=== PATIENT | male | born 1970 | race Caucasian/White ===

== ENCOUNTER → 2017-10-20 | Outpatient (CLI) | payer OTHER ==
[2017-10-20 17:37] LABS: HCT 44.2 % (39.0-53.0); HGB 14.9 gm/dL (13.0-17.5); MCH 30.6 pg (25.0-35.0); MCHC 33.8 g/dL (31.0-37.0); MCV 90.6 fL (80.0-100.0); Platelet Count 220 k/uL (150-450); RBC 4.88 m/uL (4.30-5.90); RDW 13.3 % (11.5-15.5); WBC 6.3 k/uL (3.8-10.6)
[2017-10-20 17:42] LABS: Anion Gap 8 mmol/L; Blood Urea Nitrogen 18 mg/dL (9-20); Carbon Dioxide 23 mmol/L (22-30); Chloride 110 mmol/L (98-107); Potassium 4.3 mmol/L (3.5-5.1); Sodium 141 mmol/L (137-145)
[2017-10-20 17:44] LABS: Appearance,Urine Clear (Clear); Bilirubin,Urine Negative (Negative); Blood,Urine Negative (Negative); Calcium Oxalate Crystals,Urine Moderate /hpf; Color,Urine Yellow; Glucose,Urine (UA) Negative (Negative); Ketones,Urine Negative (Negative); Leukocyte Esterase,Urine Small (Negative); Mucus,Urine Rare /hpf; Nitrite,Urine Negative (Negative); Protein,Urine Negative (Negative); RBC,Urine 2 /hpf (0-5); Specific Gravity,Urine 1.017 (1.001-1.035); Squamous Epithelial Cell,Urine <1 /hpf (0-4); WBC,Urine 15 /hpf (0-5)
== END | disposition home or self-care (01) ==
LOC: LABWHC1 16:30
PROVIDERS: ATTEND Urology
DX: N20.0 Calculus of kidney (principal)
CPT/HCPCS: 36415; 80051; 81001; 82565; 84520; 85027

== ENCOUNTER → 2017-10-27 | Day surgery (SDC) | payer OTHER ==
[2017-10-23 17:22] VITALS: BMI 30.1
--- NOTE | 2017-10-26 19:36 | P.GSHP ---
History of Present Illness H&P Date: 10/26/17 47 yo male with a left renal calculous who comes for ewsl left - Review of Systems ROS unobtainable: Reports: due to endotracheal tube, due to mental status Past Medical History Additional Past Medical History / Comment(s): KIDNEY STONES. History of Any Multi-Drug Resistant Organisms: None Reported Additional Past Surgical History / Comment(s): ECSL X2. Past Anesthesia/Blood Transfusion Reactions: No Reported Reaction Smoking Status: Never smoker - Past Family History Mother Family Medical History: No Reported History Medications and Allergies Home Medications Medication Instructions Recorded Confirmed Type No Known Home Medications 10/23/17 10/23/17 History Allergies Allergy/AdvReac Type Severity Reaction Status Date / Time No Known Allergies Allergy Verified 10/23/17 17:07 Surgical - Exam - General well developed, well nourished - Eyes PERRL - ENT no hearing loss - Neck no masses, trachea midline - Respiratory normal expansion, normal respiratory effort - Cardiovascular Rhythm: regular - Abdomen Abdomen: soft, non tender - Integumentary no rash, no growths - Neurologic normal coordination - Musculoskeletal normal gait, normal posture - Psychiatric oriented to time, oriented to person, oriented to place, speech is normal, memory intact Assessment and Plan Assessment: Impression: Left renal stone Plan: ESWl left
[~2017-10-27] MED LIST: DEXAMETHASONE SOD PHOSPHATE 10 MG/ML 1 ML VIAL IV ONE; KETAMINE 10 MG/ML 20 ML VIAL ONE; LACTATED RINGERS 1,000 ML IV ONE; LACTATED RINGERS 1,000 ML IV SCH; LIDOCAINE 1% 20 ML VIAL (10MG/ML) FOR IV START INTRADERMA ONE; MIDAZOLAM 2 MG/2 ML VIAL ONE; ONDANSETRON 4 MG/2 ML VIAL IVP ONE; PROPOFOL 10 MG/ML 20 ML VIAL IV ONE; Pre Op ABX Message 1 EACH MISC MISCELLANE ONE; fentaNYL (PF) 50 MCG/ML 2 ML AMP ONE
--- NOTE | 2017-10-27 06:16 | XR ---
EXAMINATION TYPE: XR KUB DATE OF EXAM: 10/27/2017 COMPARISON: NONE HISTORY: Preop. Renal stone. TECHNIQUE: Single view FINDINGS: There is 1 cm calculus over the lower pole left kidney. There are 2 other smaller 4 mm calc sol over the left kidney. There is no sign of intestinal obstruction or pneumoperitoneum. Fecal patte rn is normal. There are phleboliths in the pelvis. IMPRESSION: Left renal calculi. Nonacute abdomen.
--- NOTE | 2017-10-27 08:17 | P.OP ---
Date of Procedure: 10/27/17 Preoperative Diagnosis: Left renal stones Postoperative Diagnosis: Same Procedure(s) Performed: Extracorporeal shockwave lithotripsy 2500 shocks at energy level IV Anesthesia: SD SIMON Surgeon: Nash Miller Pathology: none sent Condition: stable Disposition: PACU Indications for Procedure: The patient is 47 years old he has 3 renal stones causing pain he comes for shockwave lithotripsy. Description of Procedure: Patient brought to the operating suite. He's placed on the lithotripsy table in supine position. The stones seen in 2 views of fluoroscopy. He is given IV sedation. After 300 shocks is upper pole stone begins to break cannot tolerate this sedative anesthetic. He is given an LMA mask anesthetic. Total of 2500 shocks to all the stones are administered. The stone fractures nicely. The patient's awake and returned recovery in good condition. Patellar procedure well be discharged home upon recovery.
[2017-10-27 08:41] VITALS: TEMP 96.8
[2017-10-27] MEDS: HYDROmorphone 0.5 MG/0.5 ML SYRINGE IVP PRN ×2 (08:52→08:57)
[2017-10-27 09:02] VITALS: RESP 18
[2017-10-27 09:49] VITALS: BP 156/90; PULSE 65
== END ==
LOC: ORWHC2ENDO 05:55
PROVIDERS: ATTEND Urology
DX: N20.0 Calculus of kidney (principal)
CPT/HCPCS: 74018; 50590; J2250; J1100; J2405; J3010; J2704; J1170

== ENCOUNTER 2019-12-03 09:22 | Emergency (ER) | payer OTHER ==
[2019-12-03 09:29] VITALS: RESP 18; TEMP 98.1
[2019-12-03] MEDS ORDERED: SODIUM CHLORIDE 0.9% 1,000 ML IV STA (09:39)
[2019-12-03] MEDS ORDERED: HYDROmorphone 0.5 MG/0.5 ML SYRINGE IVP STA (09:39)
[2019-12-03] MEDS ORDERED: SODIUM CHLORIDE 0.9% 500 ML 500 ML IV STA (09:39)
[2019-12-03] MEDS ORDERED: KETOROLAC 15 MG/ML 1 ML VIAL IVP STA (09:39)
[2019-12-03] MEDS ORDERED: ONDANSETRON 4 MG/2 ML VIAL IVP STA (09:39)
--- NOTE | 2019-12-03 09:43 | ED ---
General Adult HPI - General Chief complaint: Urogenital Stated complaint: Kidney stone Time Seen by Provider: 12/03/19 09:30 Source: patient, RN notes reviewed Mode of arrival: ambulatory Limitations: no limitations - History of Present Illness Initial comments: 49-year-old male presents emergency Department with chief complaint of right leg today. Patient has a history kidney stones. Patient's had surgical procedures in the past. Patient does see Dr. Bowden urologist on a regular basis. Patient had slight nausea at the makes his pain feel better or worse. Patient's current pain 5 out of 10. Patient states pain is on his right side. Patient has no dysuria no hematuria. Patient denies any chest pain or shortness breath patient offers no complaints. - Related Data Previous Rx's Medication Instructions Recorded Acetaminophen-Codeine 300-30mg 1 tab PO Q6H PRN 3 Days #12 tablet 10/27/17 [Tylenol w/codeine #3] Hydrocodone/Acetaminophen [[place] 1 tab PO Q6HR PRN #12 tab 12/03/19 5-325] Ketorolac [Toradol] 10 mg PO Q8HR #15 tab 12/03/19 Ondansetron Odt [Zofran Odt] 4 mg PO Q8HR PRN #10 tab 12/03/19 Sulfamethox-Tmp 800-160Mg [Bactrim 1 each PO Q12HR #14 tab 12/03/19 Ds] Tamsulosin [Flomax] 0.4 mg PO DAILY #7 cap 12/03/19 Allergies Allergy/AdvReac Type Severity Reaction Status Date / Time No Known Allergies Allergy Verified 12/03/19 09:29 Review of Systems ROS Statement: Those systems with pertinent positive or pertinent negative responses have been documented in the HPI. ROS Other: All systems not noted in ROS Statement are negative. Past Medical History Additional Past Medical History / Comment(s): Kidney stones History of Any Multi-Drug Resistant Organisms: None Reported Additional Past Surgical History / Comment(s): Lithrotripsy Past Psychological History: No Psychological Hx Reported Smoking Status: Never smoker Past Alcohol Use History: None Reported Past Drug Use History: None Reported General Exam Limitations: no limitations General appearance: alert, in no apparent distress Head exam: Present: atraumatic, normocephalic, normal inspection Eye exam: Present: normal appearance, PERRL, EOMI. Absent: scleral icterus, conjunctival injection, periorbital swelling ENT exam: Present: normal exam, normal oropharynx, mucous membranes moist Neck exam: Present: normal inspection, full ROM. Absent: tenderness, meningismus, lymphadenopathy Respiratory exam: Present: normal lung sounds bilaterally. Absent: respiratory distress, wheezes, rales, rhonchi, stridor Cardiovascular Exam: Present: regular rate, normal rhythm, normal heart sounds. Absent: systolic murmur, diastolic murmur, rubs, gallop, clicks GI/Abdominal exam: Present: soft, normal bowel sounds. Absent: distended, tenderness, guarding, rebound, rigid Back exam: Absent: CVA tenderness (R), CVA tenderness (L) Neurological exam: Present: alert, oriented X3, CN II-XII intact Skin exam: Present: warm, dry, intact, normal color. Absent: rash Course Vital Signs 12/03/19 12/03/19 09:26 10:51 Temperature 98.1 F Pulse Rate 80 85 Respiratory 18 18 Rate Blood Pressure 143/91 138/98 O2 Sat by Pulse 98 95 Oximetry Medical Decision Making - Medical Decision Making 49-year-old male presented for flank pain. Urinalysis reveals hematuria and mild amount of bacteria patient was given antibiotics patient has no signs of septic stone there is concerned that he may be passing a kidney stone at this time. Patient will be discharged stable condition with follow-up with his urologist return parameters were discussed. - Lab Data Result diagrams: 12/03/19 09:46 12/03/19 09:46 Lab Results 12/03/19 12/03/19 12/03/19 Range/Units 09:46 09:46 09:46 WBC 10.2 (3.8-10.6) k/uL RBC 5.18 (4.30-5.90) m/uL Hgb 16.4 (13.0-17.5) gm/dL Hct 47.0 (39.0-53.0) % MCV 90.7 (80.0-100.0) fL MCH 31.6 (25.0-35.0) pg MCHC 34.9 (31.0-37.0) g/dL RDW 12.9 (11.5-15.5) % Plt Count 190 (150-450) k/uL Neutrophils % 80 % Lymphocytes % 12 % Monocytes % 5 % Eosinophils % 2 % Basophils % 1 % Neutrophils # 8.1 H (1.3-7.7) k/uL Lymphocytes # 1.3 (1.0-4.8) k/uL Monocytes # 0.5 (0-1.0) k/uL Eosinophils # 0.2 (0-0.7) k/uL Basophils # 0.1 (0-0.2) k/uL Sodium 136 L (137-145) mmol/L Potassium 4.0 (3.5-5.1) mmol/L Chloride 104 (98-107) mmol/L Carbon Dioxide 25 (22-30) mmol/L Anion Gap 7 mmol/L BUN 16 (9-20) mg/dL Creatinine 1.34 H (0.66-1.25) mg/dL Est GFR (CKD-EPI)AfAm 73 (>60 ml/min/1.73 sqM) Est GFR (CKD-EPI)NonAf 63 (>60 ml/min/1.73 sqM) Glucose 114 H (74-99) mg/dL Calcium 10.9 H (8.4-10.2) mg/dL Total Bilirubin 2.2 H (0.2-1.3) mg/dL AST 53 (17-59) U/L ALT 68 H (4-49) U/L Alkaline Phosphatase 61 (38-126) U/L Total Protein 7.4 (6.3-8.2) g/dL Albumin 4.8 (3.5-5.0) g/dL Amylase 71 (30-110) U/L Lipase 124 (23-300) U/L Urine Color Yellow Urine Appearance Clear (Clear) Urine pH 5.5 (5.0-8.0) Ur Specific [place] 1.017 (1.001-1.035) Urine Protein Trace H (Negative) Urine Glucose (UA) Negative (Negative) Urine Ketones Trace H (Negative) Urine Blood Moderate H (Negative) Urine Nitrite Negative (Negative) Urine Bilirubin Negative (Negative) Urine Urobilinogen <2.0 (<2.0) mg/dL Ur Leukocyte Esterase Moderate H (Negative) Urine RBC 74 H (0-5) /hpf Urine WBC 17 H (0-5) /hpf Urine Bacteria Occasional H (None) /hpf Urine Mucus Rare H (None) /hpf Disposition Clinical Impression: Kidney stone Disposition: HOME SELF-CARE Condition: Stable Instructions (If sedation given, give patient instructions): Kidney Stones (ED) Additional Instructions: Please return to the Emergency Department if symptoms worsen or any other concerns. Prescriptions: Sulfamethox-Tmp 800-160Mg [Bactrim Ds] 1 each PO Q12HR #14 tab Tamsulosin [Flomax] 0.4 mg PO DAILY #7 cap Hydrocodone/Acetaminophen [[place] 5-325] 1 tab PO Q6HR PRN #12 tab PRN Reason: Pain Ketorolac [Toradol] 10 mg PO Q8HR #15 tab Ondansetron Odt [Zofran Odt] 4 mg PO Q8HR PRN #10 tab PRN Reason: Nausea Is patient prescribed a controlled substance at d/c from ED?: Yes When asked, does pt state using other controlled substances?: No If prescribed controlled substance>3 days was MAPS reviewed?: Prescribed <3 Days If opioid is for acute pain is fill amount 7 days or less?: Yes If Rx opioid, was Start Talking consent form obtained?: Yes Referrals: None,Stated [Primary Care Provider] - 1-2 days Nash Miller MD [STAFF PHYSICIAN] - 1-2 days
[2019-12-03 10:17] LABS: Appearance,Urine Clear (Clear); Bacteria,Urine Occasional /hpf; Bilirubin,Urine Negative (Negative); Blood,Urine Moderate (Negative); Color,Urine Yellow; Glucose,Urine (UA) Negative (Negative); Ketones,Urine Trace (Negative); Leukocyte Esterase,Urine Moderate (Negative); Mucus,Urine Rare /hpf; Nitrite,Urine Negative (Negative); PH, Urine 5.5 (5.0-8.0); Protein,Urine Trace (Negative); RBC,Urine 74 /hpf (0-5); Specific Gravity,Urine 1.017 (1.001-1.035); Urobilinogen,Urine <2.0 mg/dL (<2.0); WBC,Urine 17 /hpf (0-5)
--- NOTE | 2019-12-03 10:17 | XR ---
EXAMINATION TYPE: XR KUB DATE OF EXAM: 12/03/2019 10:10 AM CLINICAL HISTORY: Abdominal pain TECHNIQUE: Upright images of the abdomen and pelvis were obtained COMPARISON: 10/27/2017 KUB. FINDINGS: There is a paucity of bowel gas. The visualized bowel gas pattern is nonspecific. No pneumo peritoneum. There are calcifications overlying the bilateral kidneys measuring up to 9 and 7 mm on th e right and 9 mm on the left. Calcifications overlying the pelvis. The lung bases are clear. The osse ous structures are intact. IMPRESSION: 1. Paucity of bowel gas, with nonspecific bowel gas pattern. 2. Calcifications overlying the bilateral kidneys likely nephrolithiasis. 3. Calcifications over the pelvis could represent calculi versus phleboliths.
[2019-12-03 10:28] LABS: Basophils # (A) 0.1 k/uL (0-0.2); Basophils % (A) 1 %; Eosinophils # (A) 0.2 k/uL (0-0.7); Eosinophils % (A) 2 %; HGB 16.4 gm/dL (13.0-17.5); Lymphocytes # (A) 1.3 k/uL (1.0-4.8); Lymphocytes % (A) 12 %; MCH 31.6 pg (25.0-35.0); MCHC 34.9 g/dL (31.0-37.0); MCV 90.7 fL (80.0-100.0); Monocytes # (A) 0.5 k/uL (0-1.0); Monocytes % (A) 5 %; Neutrophils # (A) 8.1 k/uL (1.3-7.7); Neutrophils % (A) 80 %; Platelet Count 190 k/uL (150-450); RBC 5.18 m/uL (4.30-5.90); RDW 12.9 % (11.5-15.5); WBC 10.2 k/uL (3.8-10.6)
[2019-12-03 10:52] VITALS: BP 138/98; PULSE 85
[2019-12-03 11:04] LABS: Albumin 4.8 g/dL (3.5-5.0); Calcium 10.9 mg/dL (8.4-10.2); Total Bilirubin 2.2 mg/dL (0.2-1.3); Total Protein 7.4 g/dL (6.3-8.2)
[2019-12-03] MEDS ORDERED: cefTRIAXone IN SWFI 1,000 MG/10 ML SYRINGE IVP STA (11:10)
== END 2019-12-03 11:36 | disposition home or self-care (01) ==
LOC: EC 09:22
DX: N20.0 Calculus of kidney (principal)
CPT/HCPCS: 36415; 80053; 82150; 83690; 85025; 81001; 87086; 74018; 99284; 96374; 96375 ×3; 96361 ×2; J2405; J0696; J1885; J1170

== ENCOUNTER 2020-04-07 00:09 | Emergency (ER) | payer OTHER ==
[2020-04-07 00:22] VITALS: TEMP 97.9
[2020-04-07] MEDS ORDERED: SODIUM CHLORIDE 0.9% 1,000 ML IV STA (00:31)
[2020-04-07] MEDS ORDERED: ONDANSETRON 4 MG/2 ML VIAL IVP STA (00:31)
[2020-04-07] MEDS ORDERED: KETOROLAC 15 MG/ML 1 ML VIAL IVP STA (00:31)
[2020-04-07] MEDS ORDERED: HYDROmorphone 0.5 MG/0.5 ML SYRINGE IVP STA (00:31)
--- NOTE | 2020-04-07 01:03 | XR ---
EXAM: XR Abdomen, 2 Views CLINICAL HISTORY: ITS.REASON XR Reason: abdominal pain TECHNIQUE: Frontal view of the abdomen/pelvis with upright view of the abdomen. COMPARISON: 12/03/2019 FINDINGS: Intraperitoneal space: No free air. Gastrointestinal tract: Unremarkable. No dilation. Organs: Continued calcifications overlying the kidneys suggesting stones, largest measures 1 cm on the left. Bones/joints: No acute osseous abnormality. Vasculature: Calcified pelvic phleboliths. IMPRESSION: 1. Nonobstructive bowel gas pattern. 2. Continued probable bilateral nephrolithiasis.
[2020-04-07 01:05] LABS: Basophils # (A) 0.1 k/uL (0-0.2); Basophils % (A) 2 %; Eosinophils # (A) 0.3 k/uL (0-0.7); Eosinophils % (A) 5 %; HCT 44.3 % (39.0-53.0); HGB 15.5 gm/dL (13.0-17.5); Lymphocytes # (A) 2.4 k/uL (1.0-4.8); Lymphocytes % (A) 42 %; MCH 31.3 pg (25.0-35.0); MCV 89.5 fL (80.0-100.0); Mean Platelet Volume 8.7; Monocytes # (A) 0.3 k/uL (0-1.0); Monocytes % (A) 5 %; Neutrophils # (A) 2.5 k/uL (1.3-7.7); Neutrophils % (A) 43 %; Platelet Count 202 k/uL (150-450); RBC 4.95 m/uL (4.30-5.90); RDW 12.8 % (11.5-15.5); WBC 5.7 k/uL (3.8-10.6)
[2020-04-07 01:15] LABS: Albumin 4.6 g/dL (3.5-5.0); Calcium 11.3 mg/dL (8.4-10.2); Total Bilirubin 1.2 mg/dL (0.2-1.3); Total Protein 7.1 g/dL (6.3-8.2)
[2020-04-07] MEDS ORDERED: SODIUM CHLORIDE 0.9% 500 ML 500 ML IV ONE (01:34)
[2020-04-07] MEDS ORDERED: HYDROmorphone 1 MG/ML 1 ML SYRINGE IVP STA (01:48)
--- NOTE | 2020-04-07 01:50 | ED ---
Abdominal Pain HPI - General Chief Complaint: Abdominal Pain Stated Complaint: Kidney Stone Time Seen by Provider: 04/07/20 00:21 Source: patient, family Mode of arrival: ambulatory Limitations: no limitations - History of Present Illness Initial Comments: 49-year-old male patient presents to the emergency department today for evaluation of left flank pain, left lower quadrant pain. Patient states the pain started about an hour ago and has been worsening. States that he does have a history of kidney stones and this feels quite similar to his pain in the past. Denies any nausea or vomiting. Denies fever or chills. Denies any hematuria, dysuria, urinary urgency, urinary frequency. Patient has had lithotripsy in the past and has also passed stones without intervention. He did take Flomax prior to arrival. Denies any pain medication. Patient denies any recent rash, cough, shortness of breath, chest pain, diarrhea, constipation, numbness, tingling, dizziness, weakness, headache, visual changes, or any other complaints. - Related Data Previous Rx's Medication Instructions Recorded Acetaminophen-Codeine 300-30mg 1 tab PO Q6H PRN 3 Days #12 tablet 10/27/17 [Tylenol w/codeine #3] Hydrocodone/Acetaminophen [[place] 1 tab PO Q6HR PRN #12 tab 12/03/19 5-325] Ketorolac [Toradol] 10 mg PO Q8HR #15 tab 12/03/19 Ondansetron Odt [Zofran Odt] 4 mg PO Q8HR PRN #10 tab 12/03/19 Sulfamethox-Tmp 800-160Mg [Bactrim 1 each PO Q12HR #14 tab 12/03/19 Ds] Tamsulosin [Flomax] 0.4 mg PO DAILY #7 cap 12/03/19 HYDROcodone/APAP 5-325MG [[place] 1 tab PO Q6HR PRN 3 Days #12 tab 04/07/20 5-325] Ondansetron [Zofran ODT] 4 mg PO Q8HR PRN #10 tab 04/07/20 Tamsulosin HCl [Flomax] 0.4 mg PO DAILY #7 cap 04/07/20 Allergies Allergy/AdvReac Type Severity Reaction Status Date / Time No Known Allergies Allergy Verified 04/07/20 00:15 Review of Systems ROS Statement: Those systems with pertinent positive or pertinent negative responses have been documented in the HPI. ROS Other: All systems not noted in ROS Statement are negative. Past Medical History Additional Past Medical History / Comment(s): Kidney stones History of Any Multi-Drug Resistant Organisms: None Reported Past Surgical History: Hernia Repair Additional Past Surgical History / Comment(s): Lithrotripsy Past Psychological History: No Psychological Hx Reported Smoking Status: Never smoker Past Alcohol Use History: None Reported Past Drug Use History: None Reported General Exam Limitations: no limitations General appearance: alert, in no apparent distress, other (This is a well- developed, well-nourished adult male patient in no acute distress. Vital signs upon presentation are temperature 97.9F, pulse 93, respirations 22, blood pressure 154/92, pulse ox 97% on room air.) Eye exam: Present: normal appearance, PERRL, EOMI. Absent: scleral icterus, conjunctival injection, periorbital swelling ENT exam: Present: normal exam, normal oropharynx, mucous membranes moist Respiratory exam: Present: normal lung sounds bilaterally. Absent: respiratory distress, wheezes, rales, rhonchi, stridor Cardiovascular Exam: Present: regular rate, normal rhythm, normal heart sounds. Absent: systolic murmur, diastolic murmur, rubs, gallop, clicks GI/Abdominal exam: Present: soft, tenderness (Left lateral abdomen, middle), normal bowel sounds. Absent: distended, guarding, rebound, rigid Back exam: Present: normal inspection, CVA tenderness (L). Absent: CVA tenderness (R) Neurological exam: Present: alert, oriented X3, CN II-XII intact Psychiatric exam: Present: normal affect, normal mood Skin exam: Present: warm, dry, intact, normal color. Absent: rash Course Vital Signs 04/07/20 00:11 Temperature 97.9 F Pulse Rate 93 Respiratory 22 Rate Blood Pressure 154/92 O2 Sat by Pulse 97 Oximetry Medical Decision Making - Medical Decision Making 49-year-old male patient presents to the emergency department today for evaluation of left flank pain and left lower quadrant abdominal pain. Physical examination did reveal left CVA tenderness, mild left mid lateral abdominal tenderness. No suprapubic tenderness. He is afebrile normal vital signs. KUB was obtained and did show nephrolithiasis bilaterally. Labs reviewed and did reveal normal white blood cell,. Mildly elevated creatinine at 1.41. Patient also had elevated lipase at 1100. Patient was reevaluated, he denies any upper abdominal pain or mid upper back pain. Denies nausea or vomiting. States he's been eating and drinking without difficulty. Does admit to drinking every weekend over the summer, states he hasn't had alcohol for the last couple of weeks. He had no midepigastric tenderness. Urinalysis did show evidence for red and white blood cells consistent with kidney stone. I did discuss findings results with him. We did discuss pancreatitis and diet changes related to this. He will be discharged to follow-up with both gastroenterology and urology. He is given pain and nausea medication for home. He is instructed to follow clear liquid diet for the next one to days. Instructed to increase fluids. Return parameters were discussed in great detail. He verbalizes understanding and agrees with this plan. - Lab Data Result diagrams: 04/07/20 00:52 04/07/20 00:52 Lab Results 04/07/20 04/07/20 04/07/20 Range/Units 00:52 00:52 00:52 WBC 5.7 (3.8-10.6) k/uL RBC 4.95 (4.30-5.90) m/uL Hgb 15.5 (13.0-17.5) gm/dL Hct 44.3 (39.0-53.0) % MCV 89.5 (80.0-100.0) fL MCH 31.3 (25.0-35.0) pg MCHC 35.0 (31.0-37.0) g/dL RDW 12.8 (11.5-15.5) % Plt Count 202 (150-450) k/uL MPV 8.7 Neutrophils % 43 % Lymphocytes % 42 % Monocytes % 5 % Eosinophils % 5 % Basophils % 2 % Neutrophils # 2.5 (1.3-7.7) k/uL Lymphocytes # 2.4 (1.0-4.8) k/uL Monocytes # 0.3 (0-1.0) k/uL Eosinophils # 0.3 (0-0.7) k/uL Basophils # 0.1 (0-0.2) k/uL Sodium 139 (137-145) mmol/L Potassium 4.0 (3.5-5.1) mmol/L Chloride 105 (98-107) mmol/L Carbon Dioxide 23 (22-30) mmol/L Anion Gap 11 mmol/L BUN 20 (9-20) mg/dL Creatinine 1.41 H (0.66-1.25) mg/dL Est GFR (CKD-EPI)AfAm 68 (>60 ml/min/1.73 sqM) Est GFR (CKD-EPI)NonAf 59 (>60 ml/min/1.73 sqM) Glucose 122 H (74-99) mg/dL Plasma Lactic Acid [place] (0.7-2.0) mmol/L Calcium 11.3 H (8.4-10.2) mg/dL Total Bilirubin 1.2 (0.2-1.3) mg/dL AST 33 (17-59) U/L ALT 48 (4-49) U/L Alkaline Phosphatase 51 (38-126) U/L Total Protein 7.1 (6.3-8.2) g/dL Albumin 4.6 (3.5-5.0) g/dL Lipase 1133 H (23-300) U/L Urine Color Yellow Urine Appearance Clear (Clear) Urine pH 5.5 (5.0-8.0) Ur Specific [place] 1.020 (1.001-1.035) Urine Protein 1+ H (Negative) Urine Glucose (UA) Negative (Negative) Urine Ketones Negative (Negative) Urine Blood Moderate H (Negative) Urine Nitrite Negative (Negative) Urine Bilirubin Negative (Negative) Urine Urobilinogen <2.0 (<2.0) mg/dL Ur Leukocyte Esterase Small H (Negative) Urine RBC 33 H (0-5) /hpf Urine WBC 38 H (0-5) /hpf Calcium Oxalate Crystal Few H (None) /hpf Urine Mucus Rare H (None) /hpf 04/07/20 Range/Units 00:52 WBC (3.8-10.6) k/uL RBC (4.30-5.90) m/uL Hgb (13.0-17.5) gm/dL Hct (39.0-53.0) % MCV (80.0-100.0) fL MCH (25.0-35.0) pg MCHC (31.0-37.0) g/dL RDW (11.5-15.5) % Plt Count (150-450) k/uL MPV Neutrophils % % Lymphocytes % % Monocytes % % Eosinophils % % Basophils % % Neutrophils # (1.3-7.7) k/uL Lymphocytes # (1.0-4.8) k/uL Monocytes # (0-1.0) k/uL Eosinophils # (0-0.7) k/uL Basophils # (0-0.2) k/uL Sodium (137-145) mmol/L Potassium (3.5-5.1) mmol/L Chloride (98-107) mmol/L Carbon Dioxide (22-30) mmol/L Anion Gap mmol/L BUN (9-20) mg/dL Creatinine (0.66-1.25) mg/dL Est GFR (CKD-EPI)AfAm (>60 ml/min/1.73 sqM) Est GFR (CKD-EPI)NonAf (>60 ml/min/1.73 sqM) Glucose (74-99) mg/dL Plasma Lactic Acid [place] 2.0 (0.7-2.0) mmol/L Calcium (8.4-10.2) mg/dL Total Bilirubin (0.2-1.3) mg/dL AST (17-59) U/L ALT (4-49) U/L Alkaline Phosphatase (38-126) U/L Total Protein (6.3-8.2) g/dL Albumin (3.5-5.0) g/dL Lipase (23-300) U/L Urine Color Urine Appearance (Clear) Urine pH (5.0-8.0) Ur Specific [place] (1.001-1.035) Urine Protein (Negative) Urine Glucose (UA) (Negative) Urine Ketones (Negative) Urine Blood (Negative) Urine Nitrite (Negative) Urine Bilirubin (Negative) Urine Urobilinogen (<2.0) mg/dL Ur Leukocyte Esterase (Negative) Urine RBC (0-5) /hpf Urine WBC (0-5) /hpf Calcium Oxalate Crystal (None) /hpf Urine Mucus (None) /hpf - Radiology Data Radiology results: report reviewed, image reviewed Two-view x-ray of the abdomen is obtained. Report was reviewed in its entirety. Impression by Dr. Malloy shows nonobstructive bowel gas pattern. Continue probable bilateral nephrolithiasis. Disposition Clinical Impression: Kidney stone on left side, Pancreatitis Disposition: HOME SELF-CARE Condition: Good Instructions (If sedation given, give patient instructions): Pancreatitis (ED), Kidney Stones (ED), Clear Liquid Diet (ED), How to Strain Your Urine (ED) Additional Instructions: Do clear liquid diet for the next 1-2 days. Increase fluids especially water. Take medications as directed for pain control. Follow-up with your urologist for further evaluation for kidney stone in 1-2 days. Follow-up with the glue mill operator for further evaluation of her pancreatitis. Consider obtaining a primary care physician. Return to the emergency department for any new, worsening, or concerning symptoms. Prescriptions: Tamsulosin HCl [Flomax] 0.4 mg PO DAILY #7 cap HYDROcodone/APAP 5-325MG [[place] 5-325] 1 tab PO Q6HR PRN 3 Days #12 tab PRN Reason: Pain Ondansetron [Zofran ODT] 4 mg PO Q8HR PRN #10 tab PRN Reason: Nausea Is patient prescribed a controlled substance at d/c from ED?: Yes When asked, does pt state using other controlled substances?: No If prescribed controlled substance>3 days was MAPS reviewed?: Prescribed <3 Days If opioid is for acute pain is fill amount 7 days or less?: Yes If Rx opioid, was Start Talking consent form obtained?: Yes Referrals: Nash Miller MD [STAFF PHYSICIAN] - 1-2 days Lupillo Rodriguez MD [STAFF PHYSICIAN] - 1-2 days Time of Disposition: 02:15
[2020-04-07 01:57] LABS: Appearance,Urine Clear (Clear); Bilirubin,Urine Negative (Negative); Blood,Urine Moderate (Negative); Calcium Oxalate Crystals,Urine Few /hpf; Color,Urine Yellow; Glucose,Urine (UA) Negative (Negative); Ketones,Urine Negative (Negative); Leukocyte Esterase,Urine Small (Negative); Mucus,Urine Rare /hpf; Nitrite,Urine Negative (Negative); PH, Urine 5.5 (5.0-8.0); Protein,Urine 1+ (Negative); RBC,Urine 33 /hpf (0-5); Urobilinogen,Urine <2.0 mg/dL (<2.0); WBC,Urine 38 /hpf (0-5)
[2020-04-07] MEDS ORDERED: ACET/COD 300 MG/30 MG STARTER PACK 6 TAB BTL PO STA (02:16)
[2020-04-07] MEDS ORDERED: ONDANSETRON 4 MG ODT STARTER PACK 2 TAB BTL PO STA (02:16)
[2020-04-07 03:07] VITALS: BP 134/93; PULSE 68; RESP 18
== END 2020-04-07 03:08 | disposition home or self-care (01) ==
LOC: EC 00:09
DX: N20.0 Calculus of kidney (principal); K85.90 Acute pancreatitis without necrosis or infection, unspecified
CPT/HCPCS: 99284; 96374; 96375 ×2; 96376; 96361; 36415; 80053; 83605; 83690; 85025; 81001; 87086; 74018; J2405; J1170 ×2; J1885; S0119

== ENCOUNTER → 2020-04-10 | Outpatient (CLI) | payer OTHER ==
--- NOTE | 2020-04-11 08:09 | XR ---
KUB HISTORY: Left flank pain, N 20.0 Frontal KUB and 2 images correlated to prior exam 04/07/2020 There are small multiple calcifications overlying the lower pole the left kidney similar to prior exa m. Some sand-like calcifications are also present in the mid to lower pole on the left, there is a ca lcification superimposed over the right kidney which also may be fragmented. Multiple calcifications are noted within the pelvis and scrotum similar to prior, difficult to exclude a distal ureteral calc ulus. IMPRESSION: Findings are similar to prior exam. Bilateral nephrolithiasis. Additional findings above.
== END | disposition home or self-care (01) ==
LOC: RADXRMAIN 15:14
PROVIDERS: ATTEND Urology
DX: N20.2 Calculus of kidney with calculus of ureter (principal)
CPT/HCPCS: 74018

== ENCOUNTER → 2020-04-12 | Outpatient (CLI) | payer OTHER ==
--- NOTE | 2020-04-12 11:55 | CT ---
EXAMINATION TYPE: CT abdomen pelvis wo con DATE OF EXAM: 04/12/2020 COMPARISON: None HISTORY: Pain Examination of the solid and hollow viscera is limited given the lack of contrast. FINDINGS: LUNG BASES: No evidence for nodule. No evidence for infiltrate. LIVER/GB: The gallbladder is unremarkable. No space-occupying hepatic lesion. PANCREAS: No pancreatic mass identified. No inflammatory process seen. SPLEEN: No evidence for splenomegaly. No intrasplenic lesions seen. ADRENALS: No adrenal nodules identified. No evidence for thickening. KIDNEYS: Approximately 4 nonobstructing calculi are noted right kidney the largest within the mid johnna e measures 9.2 cm. Approximately 6 nonobstructing calculi left kidney the largest noted within the lo wer pole measures approximately 1.3 cm. No obstructing calculus noted. No evidence for hydronephrosis . Renal cystic changes noted left kidney. BOWEL: Appendix has a normal appearance. No evidence of bowel obstruction. No inflammatory process. Lymph nodes: No evidence for adenopathy greater than 1 cm. Abdominal aorta: Atheromatous changes seen. No evidence for aneurysm. Genital organs: No significant abnormality. Other: No significant abnormality. IMPRESSION: 1. Nonobstructing nephrolithiasis.
== END | disposition home or self-care (01) ==
LOC: RADCTMAIN 11:11
PROVIDERS: ATTEND Urology
DX: N20.0 Calculus of kidney (principal)
CPT/HCPCS: 74176

== ENCOUNTER → 2020-05-15 | Outpatient (CLI) | payer OTHER ==
--- NOTE | 2020-05-15 10:28 | XR ---
EXAMINATION TYPE: XR KUB DATE OF EXAM: 05/15/2020 COMPARISON: 04/10/2020 HISTORY: Post lithotripsy TECHNIQUE: One view abdominal series FINDINGS: There numerous calcifications in the pelvis majority which appear to be vascular. There is a calcific ation overlying the right sacrum which could be within the right ureter measuring a diameter of 3.2 m m. Large left lower pole renal calculus measuring 1.5 cm and previously and is stable. There is a laura cification involving the mid and lower pole right kidney measuring 0.8 cm and a 1 cm. There is also 5 mm calcification overlying the right transverse process of L5. IMPRESSION: 1. Bilateral renal calculi. Findings suspicious for distal right UVJ calculus. 2. There is a 5 mm calcification overlying the right transverse process of L5 which could be within t he mid right ureter.
== END | disposition home or self-care (01) ==
LOC: RADXRMAIN 09:43
PROVIDERS: ATTEND Urology
DX: N20.0 Calculus of kidney (principal)
CPT/HCPCS: 74018

== ENCOUNTER → 2020-06-07 | Outpatient (CLI) | payer OTHER ==
--- NOTE | 2020-06-07 14:57 | XR ---
KUB HISTORY: N 20.0 Frontal KUB and 2 images correlated prior KUB 05/15/2020, CT 04/12/2020 Overlying bowel gas may obscure detail. There are calcifications overlying the bilateral kidneys, low er pole stones on the left show similar appearance. The calcifications in the right kidney seen on pr ior less well seen, suspect a calcification in the midpole region of the right kidney measuring appro ximately 7-8 mm, possible additional calcification. Calcification described at the level of the trans verse process on the right at L5 on previous exam not seen with certainty Multiple calcifications are again noted within the pelvis bilaterally. IMPRESSION: Nephrolithiasis, difficult to exclude distal ureteral calculus
== END | disposition home or self-care (01) ==
LOC: RADXRMAIN 14:07
PROVIDERS: ATTEND Urology
DX: N20.2 Calculus of kidney with calculus of ureter (principal)
CPT/HCPCS: 74018

== ENCOUNTER → 2020-08-21 | Outpatient (CLI) | payer OTHER ==
[2020-08-21 15:08] LABS: Basophils # (A) 0.1 k/uL (0-0.2); Basophils % (A) 1 %; Eosinophils # (A) 0.4 k/uL (0-0.7); Eosinophils % (A) 6 %; HCT 46.4 % (39.0-53.0); HGB 15.4 gm/dL (13.0-17.5); Lymphocytes # (A) 1.9 k/uL (1.0-4.8); Lymphocytes % (A) 28 %; MCH 30.8 pg (25.0-35.0); MCHC 33.2 g/dL (31.0-37.0); MCV 92.8 fL (80.0-100.0); Mean Platelet Volume 9.1; Monocytes # (A) 0.4 k/uL (0-1.0); Monocytes % (A) 6 %; Neutrophils # (A) 3.8 k/uL (1.3-7.7); Neutrophils % (A) 56 %; Platelet Count 205 k/uL (150-450); RDW 13.5 % (11.5-15.5); WBC 6.8 k/uL (3.8-10.6)
[2020-08-21 15:15] LABS: Potassium 4.6 mmol/L (3.5-5.1)
[2020-08-21 15:37] LABS: Color,Urine Yellow
[2020-08-21 15:38] LABS: Appearance,Urine Slightly Cloudy (Clear); Bilirubin,Urine Negative (Negative); Blood,Urine Trace (Negative); Glucose,Urine (UA) Negative (Negative); Ketones,Urine Negative (Negative); Leukocyte Esterase,Urine Moderate (Negative); Nitrite,Urine Negative (Negative); PH, Urine 6.5 (5.0-8.0); Protein,Urine Trace (Negative); Urobilinogen,Urine <0.2 mg/dL (<2.0)
[2020-08-21 15:39] LABS: Calcium Oxalate Crystals,Urine Moderate /hpf; Mucus,Urine Occasional /hpf; RBC,Urine 5 /hpf (0-5); Squamous Epithelial Cell,Urine <1 /hpf (0-4); WBC,Urine 28 /hpf (0-5)
== END | disposition home or self-care (01) ==
LOC: LABPAT 14:10
PROVIDERS: ATTEND Urology
DX: Z01.812 Encounter for preprocedural laboratory examination (principal); N20.0 Calculus of kidney; R31.29 Other microscopic hematuria
CPT/HCPCS: 36415; 80051; 81001; 82565; 84520; 85025

== ENCOUNTER 2020-08-28 07:53 | Day surgery (SDC) | payer OTHER ==
[2020-08-25 09:06] VITALS: BMI 29.4
--- NOTE | 2020-08-28 07:50 | P.GSHP ---
History of Present Illness H&P Date: 08/28/20 49-year-old gentleman with a history kidney stones. He had shockwave lithotripsy on the right The stone broke somewhat but there is still a decent fragment in the kidney. He comes for repeat shockwave lithotripsy of the right renal stone - Constitutional Constitutional: Denies chills, Denies fever - EENT Eyes: denies blurred vision, denies pain Ears, nose, mouth and throat: Denies headache, Denies sore throat - Cardiovascular Cardiovascular: Denies chest pain, Denies shortness of breath - Respiratory Respiratory: Denies cough, Denies 7 - Gastrointestinal Gastrointestinal: Denies abdominal pain, Denies diarrhea, Denies nausea, Denies vomiting - Genitourinary (Female) Genitourinary: Denies dysuria, Denies hematuria - Genitourinary (Male) Genitourinary: Denies dysuria, Denies hematuria - Musculoskeletal Musculoskeletal: Denies myalgias - Integumentary Integumentary: Denies pruritus, Denies rash - Neurological Neurological: Denies numbness, Denies weakness - Psychiatric Psychiatric: Denies anxiety, Denies depression - Endocrine Endocrine: Denies fatigue, Denies weight change Past Medical History Past Medical History: No Reported History Additional Past Medical History / Comment(s): Kidney stones History of Any Multi-Drug Resistant Organisms: None Reported Past Surgical History: Hernia Repair Additional Past Surgical History / Comment(s): Lithrotripsy Past Anesthesia/Blood Transfusion Reactions: No Reported Reaction Smoking Status: Never smoker - Past Family History Mother Family Medical History: No Reported History Medications and Allergies Home Medications Medication Instructions Recorded Confirmed Type No Known Home Medications 08/25/20 08/25/20 History Allergies Allergy/AdvReac Type Severity Reaction Status Date / Time No Known Allergies Allergy Verified 08/25/20 08:38 Surgical - Exam - General well developed, well nourished, no distress - Eyes PERRL - ENT no hearing loss - Neck trachea midline - Respiratory normal expansion, normal respiratory effort - Cardiovascular Rhythm: regular - Abdomen Abdomen: soft, non tender - Genitourinary normal penis with no external lesions, testicles present - Integumentary no rash, no growths - Neurologic normal coordination, normal sensation - Musculoskeletal normal gait, normal posture Results - Imaging Abdominal x-ray: report reviewed, image reviewed Assessment and Plan Assessment: Impression: Right renal stone incompletely fracture from previous shockwave lithotripsy Recommendations: Shockwave lithotripsy right
[~2020-08-28 07:53] MED LIST changes: -DEXAMETHASONE SOD PHOSPHATE 10 MG/ML 1 ML VIAL IV ONE; +DEXAMETHASONE SOD PHOSPHATE 4 MG/ML 1 ML VIAL IV ONE; +HYDROmorphone 0.5 MG/0.5 ML SYRINGE IVP PRN; -KETAMINE 10 MG/ML 20 ML VIAL ONE; -LACTATED RINGERS 1,000 ML IV ONE; -LIDOCAINE 1% 20 ML VIAL (10MG/ML) FOR IV START INTRADERMA ONE; -MIDAZOLAM 2 MG/2 ML VIAL ONE; -PROPOFOL 10 MG/ML 20 ML VIAL IV ONE; -Pre Op ABX Message 1 EACH MISC MISCELLANE ONE; -fentaNYL (PF) 50 MCG/ML 2 ML AMP ONE
--- NOTE | 2020-08-28 08:17 | XR ---
EXAMINATION TYPE: XR KUB DATE OF EXAM: 08/28/2020 8:06 AM CLINICAL HISTORY: Preoperative, kidney stones TECHNIQUE: Single supine KUB image of the abdomen is obtained. COMPARISON: None. FINDINGS: Scattered gas is seen in non-distended small bowel loops. Gas and fecal material is seen in non-distended colon. There are densities overlying the left lower renal pole measuring up to 1.5 cm, likely nephrolithiasis. The lung bases are clear and the osseous structures are intact. IMPRESSION: Densities overlying the left lower renal pole measuring up to 1.5 cm most likely represent nephrolith iasis.
[2020-08-28 08:28] VITALS: RESP 16; TEMP 98.3
[2020-08-28] MEDS ORDERED: LIDOCAINE 1% (10MG/ML) FOR IV START INTRADERMA ONE (08:36)
[2020-08-28] MEDS ORDERED: PROPOFOL 10 MG/ML 20 ML VIAL IV ONE (08:59)
[2020-08-28] MEDS ORDERED: CARBOPLATIN IV ONE (08:59)
[2020-08-28] MEDS ORDERED: MIDAZOLAM 2 MG/2 ML VIAL ONE (08:59)
--- NOTE | 2020-08-28 09:29 | P.OP ---
Date of Procedure: 08/28/20 Preoperative Diagnosis: Right renal stone Postoperative Diagnosis: Same Procedure(s) Performed: l shockwave lithotripsy right, 2000 shocks at energy level IV Anesthesia: MAC Surgeon: Nash Miller Estimated Blood Loss (ml): 0 Pathology: none sent Condition: stable Disposition: PACU Indications for Procedure: The patient is 49. He had a right stone treated with shockwave lithotripsy that was completely fragmented. He was given options and come for a second shockwave lithotripsy of the right side Description of Procedure: Patient about the operating suite. He is given IV sedation on the lithotripsy table. The right renal stone, 7 mm seen in 2 views of fluoroscopy. A total 2000 shocks at energy level IV administered. The stone fractures nicely. Then the procedure the patient awake and returned recovery room good condition. He tolerated procedure well be discharged home upon recovery. He'll follow-up in the office in one week.
[2020-08-28 09:54] VITALS: BP 146/98; PULSE 73
== END 2020-08-28 10:42 | disposition home or self-care (01) ==
LOC: ORWHC2ENDO 07:53
PROVIDERS: ATTEND Urology
DX: N20.0 Calculus of kidney (principal); Z87.442 Personal history of urinary calculi; Z98.890 Other specified postprocedural states
CPT/HCPCS: 74018; 50590; J2250; J1100; J2405; J9045; J2704

== ENCOUNTER → 2020-09-04 | Outpatient (CLI) | payer OTHER ==
--- NOTE | 2020-09-04 15:57 | XR ---
EXAMINATION TYPE: XR KUB DATE OF EXAM: 09/04/2020 COMPARISON: NONE HISTORY: One week post lithotripsy TECHNIQUE: One view abdominal series FINDINGS: The osseous structures are intact. The bowel gas pattern is nonspecific. Lung bases are clear. Calc ifications in the pelvis are stable from prior exam likely vascular. No suspicious calcifications marysol ng the paraspinal line. Right kidney: There is a persistent calcification overlying the mid to upper pole the right kidney me asuring 1 cm in greatest axis. Additional lower pole 3 mm right renal calculus stable. Left kidney: There are at least 3 calcifications noted on the left the largest measuring 8 mm. IMPRESSION: 1. Nonspecific abdomen. Bilateral nephrolithiasis similar in appearance to prior exam. There may be slight fragmentation of the larger right mid to upper pole renal calcification.
== END | disposition home or self-care (01) ==
LOC: RADXRMAIN 15:01
PROVIDERS: ATTEND Urology
DX: N20.0 Calculus of kidney (principal)
CPT/HCPCS: 74018

== ENCOUNTER → 2020-11-20 | Outpatient (CLI) | payer OTHER ==
[2020-11-20 15:58] LABS: Basophils # (A) 0.1 k/uL (0-0.2); Basophils % (A) 1 %; Eosinophils # (A) 0.4 k/uL (0-0.7); Eosinophils % (A) 7 %; HGB 15.9 gm/dL (13.0-17.5); Lymphocytes % (A) 32 %; MCH 33.2 pg (25.0-35.0); MCHC 34.5 g/dL (31.0-37.0); MCV 96.3 fL (80.0-100.0); Mean Platelet Volume 8.9; Monocytes # (A) 0.4 k/uL (0-1.0); Monocytes % (A) 6 %; Neutrophils # (A) 3.3 k/uL (1.3-7.7); Neutrophils % (A) 53 %; Platelet Count 206 k/uL (150-450); RBC 4.78 m/uL (4.30-5.90); RDW 13.4 % (11.5-15.5); WBC 6.3 k/uL (3.8-10.6)
[2020-11-20 16:04] LABS: Potassium 4.6 mmol/L (3.5-5.1)
[2020-11-20 16:20] LABS: Appearance,Urine Cloudy (Clear); Bilirubin,Urine Negative (Negative); Blood,Urine Trace (Negative); Color,Urine Yellow; Glucose,Urine (UA) Negative (Negative); Ketones,Urine Negative (Negative); Leukocyte Esterase,Urine Moderate (Negative); Mucus,Urine Occasional /hpf; Nitrite,Urine Negative (Negative); PH, Urine 5.5 (5.0-8.0); Protein,Urine 1+ (Negative); RBC,Urine 17 /hpf (0-5); Specific Gravity,Urine 1.019 (1.001-1.035); WBC,Urine 20 /hpf (0-5)
== END | disposition home or self-care (01) ==
LOC: LABPAT 14:46
PROVIDERS: ATTEND Urology
DX: Z01.812 Encounter for preprocedural laboratory examination (principal); N20.0 Calculus of kidney
CPT/HCPCS: 36415; 80051; 81001; 82565; 84520; 85025

== ENCOUNTER 2020-11-27 05:56 | Day surgery (SDC) | payer OTHER ==
[2020-11-22 15:58] VITALS: BMI 30.1
--- NOTE | 2020-11-26 18:33 | P.GSHP ---
History of Present Illness H&P Date: 11/26/20 50 yo male sp right eswl Brink passed the stone He has a stone in the left kidney and wants eswl left. The alternatives and risks have been discussed. - Constitutional Constitutional: Denies chills, Denies fever - EENT Eyes: denies blurred vision, denies pain Ears, nose, mouth and throat: Denies headache, Denies sore throat - Cardiovascular Cardiovascular: Denies chest pain, Denies shortness of breath - Respiratory Respiratory: Denies cough, Denies 7 - Gastrointestinal Gastrointestinal: Denies abdominal pain, Denies diarrhea, Denies nausea, Denies vomiting - Genitourinary (Female) Genitourinary: Denies dysuria, Denies hematuria - Genitourinary (Male) Genitourinary: Denies dysuria, Denies hematuria - Musculoskeletal Musculoskeletal: Denies myalgias - Integumentary Integumentary: Denies pruritus, Denies rash - Neurological Neurological: Denies numbness, Denies weakness - Psychiatric Psychiatric: Denies anxiety, Denies depression - Endocrine Endocrine: Denies fatigue, Denies weight change Past Medical History Additional Past Medical History / Comment(s): Kidney stones History of Any Multi-Drug Resistant Organisms: None Reported Past Surgical History: Hernia Repair Additional Past Surgical History / Comment(s): Lithrotripsy Past Anesthesia/Blood Transfusion Reactions: No Reported Reaction Smoking Status: Never smoker - Past Family History Mother Family Medical History: No Reported History Medications and Allergies Home Medications Medication Instructions Recorded Confirmed Type No Known Home Medications 11/22/20 11/22/20 History Allergies Allergy/AdvReac Type Severity Reaction Status Date / Time No Known Allergies Allergy Verified 11/22/20 15:53 Surgical - Exam - General well developed, well nourished, no distress - Eyes PERRL - ENT no hearing loss - Neck trachea midline - Respiratory normal expansion, normal respiratory effort - Cardiovascular Rhythm: regular - Abdomen Abdomen: soft, non tender - Genitourinary normal penis with no external lesions, testicles present - Neurologic normal coordination, normal sensation - Musculoskeletal normal gait, normal posture - Psychiatric oriented to time, oriented to person, oriented to place, speech is normal, memory intact Results - Imaging Abdominal x-ray: report reviewed, image reviewed CT scan - abdomen: report reviewed, image reviewed CT scan - pelvis: report reviewed, image reviewed Assessment and Plan Assessment: Impression:Left renal stone Plan: left eswl
[~2020-11-27 05:56] MED LIST changes: -DEXAMETHASONE SOD PHOSPHATE 4 MG/ML 1 ML VIAL IV ONE; -HYDROmorphone 0.5 MG/0.5 ML SYRINGE IVP PRN; +MIDAZOLAM 2 MG/2 ML VIAL IV PRN; -ONDANSETRON 4 MG/2 ML VIAL IVP ONE
--- NOTE | 2020-11-27 06:18 | XR ---
EXAMINATION TYPE: XR KUB DATE OF EXAM: 11/27/2020 COMPARISON: 09/04/2020 HISTORY: Kidney stones. Pain. TECHNIQUE: FINDINGS: There are multiple small calcifications over the right kidney. There are multiple calcifica tions over the lower pole left kidney. The bowel gas pattern is normal. There is no sign of intestina l obstruction or pneumoperitoneum. Fecal pattern is normal. There is no evidence of a mass. Lung base s are clear. There are phleboliths in the pelvis. I see no definite ureteral calculus. IMPRESSION: Bilateral renal calculi similar to old exam.
[2020-11-27 06:19] VITALS: RESP 16; TEMP 97
[2020-11-27] MEDS ORDERED: LIDOCAINE 1%-EPI 1:100,000 20 ML VIAL SQ ONE (06:28)
[2020-11-27] MEDS ORDERED: LIDOCAINE 1% (10MG/ML) FOR IV START SQ ONE (06:28)
[2020-11-27] MEDS ORDERED: ONDANSETRON 4 MG/2 ML VIAL ONE (06:45)
[2020-11-27] MEDS ORDERED: ONDANSETRON 4 MG/2 ML VIAL IVP ONE (06:50)
[2020-11-27] MEDS ORDERED: DEXAMETHASONE SOD PHOSPHATE 4 MG/ML 1 ML VIAL IV ONE (06:50)
[2020-11-27] MEDS ORDERED: HYDROmorphone 0.5 MG/0.5 ML SYRINGE IVP PRN (07:00)
[2020-11-27] MEDS ORDERED: MIDAZOLAM 2 MG/2 ML VIAL ONE (07:19)
[2020-11-27] MEDS ORDERED: PROPOFOL 10 MG/ML 20 ML VIAL IV ONE (07:19)
[2020-11-27] MEDS ORDERED: fentaNYL (PF) 50 MCG/ML 2 ML AMP ONE (07:19)
--- NOTE | 2020-11-27 07:54 | P.OP ---
Date of Procedure: 11/27/20 Preoperative Diagnosis: left renal calculous Postoperative Diagnosis: same Procedure(s) Performed: eswl 2000 shocks, energy level 4 Anesthesia: MAC Surgeon: Nash Miller Estimated Blood Loss (ml): 0 Pathology: none sent Condition: stable Disposition: PACU Indications for Procedure: The patient is 50. He has a history of kidney stones.. Shockwave lithotripsy on the right. He now comes for shockwave lithotripsy to left lower pole stone. 8 Millimeters Description of Procedure: Patient is brought to the operating suite. He's placed on the lithotripsy table. He is given IV sedation. The stone is interviewed in 2 views of fluoroscopy. 2000 shocks at energy level IV. Administered. The stone fractures nicely. Procedures is awakened and returned recovery room in good condition. He will be discharged home upon recovery and found the office in one week
[2020-11-27 08:43] VITALS: BP 146/90; PULSE 61
== END 2020-11-27 09:40 | disposition home or self-care (01) ==
LOC: ORWHC2ENDO 05:56
PROVIDERS: ATTEND Urology
DX: N20.0 Calculus of kidney (principal); Z87.442 Personal history of urinary calculi
CPT/HCPCS: 50590; 74018; J2250; J1100; J2405; J3010; J2704

== ENCOUNTER → 2020-12-04 | Outpatient (CLI) | payer OTHER ==
--- NOTE | 2020-12-04 10:15 | XR ---
KUB HISTORY: Postlithotripsy, bilateral nephrolithiasis KUB on 2images correlated to prior exam 11/27/2020 Calcifications overlying lower pole left kidney are present, larger measures approximately 15 mm, sma ller approximately 7 mm with some possible associated fragments, at the midpole superimposed over the posterior rib there are at least 3 calcifications present which show the largest measuring only appr oximately 5 mm. Multiple calcifications are again seen in the pelvis. Right-sided renal calcification s likely stable. IMPRESSION: Post lithotripsy findings, residual left-sided nephrolithiasis.
== END | disposition home or self-care (01) ==
LOC: RADXRMAIN 08:47
PROVIDERS: ATTEND Urology
DX: N20.0 Calculus of kidney (principal)
CPT/HCPCS: 74018

== ENCOUNTER → 2021-01-03 | Outpatient (CLI) | payer OTHER ==
--- NOTE | 2021-01-03 14:51 | XR ---
KUB HISTORY: N20.0 frontal KUB on 2 images correlated prior exam 12/04/2020, KUB 04/10/2020, CT 04/12/2020 Multiple phleboliths are present within the pelvis. Calcifications superimposed over the lower pole t he left kidney appear to be fragmented, largest calcification measures approximately 8 mm. Bowel gas obscures detail. Multiple calcifications are again seen over the lower pole of left kidney similar to prior exam. Calcifications are also present overlying the mid pole of the right kidney to measure pr ior exam. T12 compression deformity is noted as on prior exams, chronic. IMPRESSION: Bilateral nephrolithiasis.
== END | disposition home or self-care (01) ==
LOC: RADXRMAIN 14:15
PROVIDERS: ATTEND Urology
DX: N20.0 Calculus of kidney (principal)
CPT/HCPCS: 74018

== ENCOUNTER → 2022-06-14 | Outpatient (CLI) | payer BC ==
--- NOTE | 2022-06-14 08:39 | CT ---
EXAMINATION TYPE: CT abdomen pelvis wo con DATE OF EXAM: 06/14/2022 HISTORY: Abdominal pain, hx renal stones CT DLP: 909 mGycm. Automated Exposure Control for Dose Reduction was Utilized. TECHNIQUE: CT scan of the abdomen and pelvis is performed without oral or IV contrast. COMPARISON: Prior CT April 12, 2020 FINDINGS: Within the limitations of a non-contrast study, the following observations are made. LUNG BASES: No significant abnormality is appreciated. LIVER/GB: No significant abnormality is appreciated. PANCREAS: No significant abnormality is seen. SPLEEN: No significant abnormality is seen. ADRENALS: No significant abnormality is seen. KIDNEYS: Bilateral nephrolithiasis redemonstrated. Approximately 3-4 right renal calculi and C5-6 lef t renal calculi on the current study. Suspect 2 adjacent calculi upper pole and lower pole right kidn ey measuring up to 7 mm in size on the right and 9 mm in size on the left. There is 3.2 cm simple cherie earing thin-walled cyst in the left kidney laterally axial image 63. There is 9 mm distal left ureteral calculus on axial image 133 and 8 mm distal right ureteric calculu s on axial image 132 along with smaller 5 mm calculus just proximal to this in the distal right urete r axial image 127. No significant hydronephrosis. There is some asymmetric right-sided hydroureter. N o intraluminal calculi in the bladder. BOWEL: Normal-appearing appendix. GENITAL ORGANS: Mildly enlarged prostate gland. LYMPH NODES: No greater than 1cm abdominal or pelvic lymph nodes are appreciated. OSSEOUS STRUCTURES: No significant abnormality is seen. OTHER: No significant additional abnormality is seen. IMPRESSION: Bilateral nephrolithiasis with obstructing bilateral distal ureteral calculi as detailed above.
== END | disposition home or self-care (01) ==
LOC: RADCTMAIN 08:02
PROVIDERS: ATTEND Urology
DX: N20.2 Calculus of kidney with calculus of ureter (principal)
CPT/HCPCS: 74176

== ENCOUNTER 2022-06-18 07:08 | Observation (INO) | payer BC ==
[2022-06-18] MEDS ORDERED: SODIUM CHLORIDE 0.9% 1,000 ML IV STA (07:34)
[2022-06-18] MEDS ORDERED: KETOROLAC 15 MG/ML 1 ML VIAL IVP STA (07:34)
[2022-06-18] MEDS ORDERED: ONDANSETRON 4 MG/2 ML VIAL IVP STA (07:34)
[2022-06-18] MEDS ORDERED: MORPHINE SULFATE 4 MG/ML SYRINGE IVP STA ×2 (07:35→09:48)
[2022-06-18 07:48] LABS: Basophils % (A) 1 %; Eosinophils # (A) 0.3 k/uL (0-0.7); Eosinophils % (A) 5 %; HGB 14.6 gm/dL (13.0-17.5); Lymphocytes % (A) 29 %; MCH 31.2 pg (25.0-35.0); MCHC 34.8 g/dL (31.0-37.0); MCV 89.6 fL (80.0-100.0); Mean Platelet Volume 9.5; Monocytes # (A) 0.4 k/uL (0-1.0); Monocytes % (A) 6 %; Neutrophils # (A) 4.2 k/uL (1.3-7.7); Neutrophils % (A) 59 %; Platelet Count 178 k/uL (150-450); RBC 4.69 m/uL (4.30-5.90); RDW 12.8 % (11.5-15.5)
--- NOTE | 2022-06-18 07:50 | ED ---
General Adult HPI - General Chief complaint: Abdominal Pain Stated complaint: back pain, kidney stone Time Seen by Provider: 06/18/22 07:16 Source: patient, RN notes reviewed, old records reviewed Mode of arrival: ambulatory Limitations: no limitations - History of Present Illness Initial comments: Patient is a 51-year-old male with past medical history remarkable for kidney stones who presents emergency Department complaining of right sided flank pain for the last month. Has required lithotripsy in the past. Denies any nausea or vomiting. Denies any change in bowel habits. Denies any urinary complaints believes he may have had some blood in his urine. Denies any fevers or chills. Denies any chest pain or shortness of breath. Has a history of kidney stones. Recently saw his urologist and had a CT done on Friday but is uncertain of the results. Presents for further evaluation at this time. Scribes the pain as waves of pain has been more or less constant for the last month with minimal improvement. Thought it may have passed a stone originally but it has not improved with this. - Related Data Home Medications Medication Instructions Recorded Confirmed Terbinafine [LamISIL] 250 mg PO DAILY 06/18/22 06/18/22 Allergies Allergy/AdvReac Type Severity Reaction Status Date / Time No Known Allergies Allergy Verified 06/18/22 08:53 Review of Systems ROS Statement: Those systems with pertinent positive or pertinent negative responses have been documented in the HPI. Review of Systems: CONST: Denies fever EYES: Denies blurry vision ENT: Denies nasal congestion C/V: Denies Chest pain RESP: Denies shortness of breath GI: Endorses right flank pain. : Denies dysuria SKIN: Denies rash. MSK: Denies joint pain. NEURO: Denies headache ROS Other: All systems not noted in ROS Statement are negative. Past Medical History Additional Past Medical History / Comment(s): Kidney stones History of Any Multi-Drug Resistant Organisms: None Reported Past Surgical History: Hernia Repair Additional Past Surgical History / Comment(s): Lithrotripsy Past Psychological History: No Psychological Hx Reported Smoking Status: Never smoker General Exam - General Exam Comments Initial Comments: General: Appears in mild distress secondary to flank pain. HEAD: Normal with no signs of head trauma. EYES: EOMI ENT: Hearing grossly intact, normal oropharynx. RESPIRATORY: Clear breath sounds bilaterally. No wheezes, rales, or rhonchi. C/V: Regular rate and rhythm. S1 and S2 auscultated, peripheral pulses 2+ and intact throughout ABD: Abdomen soft, nondistended. Tender to palpation in the right flank. No CVA tenderness to percussion. Tenderness seems to radiate down towards the right groin. No guarding. No peritoneal signs. EXT: Normal range of motion, no obvious deformity SKIN: No rashes or lesions observed on exposed skin. NEURO: Alert and oriented 4. Limitations: no limitations Course Vital Signs 06/18/22 06/18/22 06/18/22 07:10 09:47 11:27 Temperature 98 F Pulse Rate 76 69 68 Respiratory 16 18 18 Rate Blood Pressure 174/92 132/81 134/84 O2 Sat by Pulse 98 95 96 Oximetry Medical Decision Making - Medical Decision Making Was pt. sent in by a medical professional or institution (, PA, ELEMENTARY EDUCATION TEACHER, urgent care, hospital, or residential...) When possible be specific @ -No Did you speak to anyone other than the patient for history (EMS, parent, family, police, friend...)? What history was obtained from this source @ -No Did you review nursing and triage notes (agree or disagree)? Why? @ -I reviewed and agree with nursing and triage notes Were old charts reviewed (outside hosp., previous admission, EMS record, old EKG, old radiological studies, urgent care reports/EKG's, residential records)? Report findings @ -CT imaging was reviewed from June 2022 Differential Diagnosis (chest pain, altered mental status, abdominal pain women, abdominal pain men, vaginal bleeding, weakness, fever, dyspnea, syncope, headache, dizziness, GI bleed, back pain, seizure, CVA, palpatations, mental health, musculoskeletal)? @ -Differential Abdominal Pain Men: Appendicitis, cholecystitis, diverticulosis, ischemic bowel, pancreatitis, hepatitis, UTI, gastroenteritis, AAA, incarcerated hernia, bowel obstruction, constipation, inflammatory bowel, hepatitis, peptic ulcer disease, splenic infarction, perforated viscus, testicular torsion, this is not meant to be an all-inclusive list EKG interpreted by me (3pts min.). @ -None done X-rays interpreted by me (1pt min.). @ -None done CT interpreted by me (1pt min.). @ -None done U/S interpreted by me (1pt. min.). @ -Patient's ultrasound was remarkable for bilateral hydronephrosis as well as nephrolithiasis. Right-sided moderate hydronephrosis while left has mild. What testing was considered but not performed or refused? (CT, X-rays, U/S, labs)? Why? @ -None What meds were considered but not given or refused? Why? @ -None Did you discuss the management of the patient with other professionals (professionals i.e. , PA, ELEMENTARY EDUCATION TEACHER, lab, RT, psych nurse, social media project manager, shooter's helper, teacher, correctional security officer, counter caser)? Give summary @ -No Was smoking cessation discussed for >3mins.? @ -No Was critical care preformed (if so, how long)? @ -No Were there social determinants of health that impacted care today? How? (Homelessness, low income, unemployed, alcoholism, drug addiction, transportation, low edu. Level, literacy, decrease access to med. care, snf, rehab)? @ -No Was there de-escalation of care discussed even if they declined (Discuss DNR or withdrawal of care, Hospice)? DNR status @ -No What co-morbidities impacted this encounter? (DM, HTN, Smoking, COPD, CAD, Cancer, CVA, ARF, Chemo, Hep., AIDS, mental health diagnosis, sleep apnea, morbid obesity)? @ -Kidney stones Was patient admitted / discharged? Hospital course, mention meds given and route, prescriptions, significant lab abnormalities, going to OR and other pertinent info. @ -Based on the Patient's presentation and physical exam I'm concerned for symptomatic kidney stones for the patient. CT imaging was already obtained last week and was remarkable for showing bilateral nephrolithiasis with bilateral ureter lithiasis. There is a 9 mm distal left ureteral calculus as well as an 8 mm distal right ureteral calculus in addition to a 5 mm calculus in the right ureter as well. No evidence of hydronephrosis on the CT imaging. There is some hydroureter on the right. No calculi in the bladder. CT imaging was done 4 days ago on June 14. I discussed results of the patient. We will obtain basic labs to assess renal function, urinalysis, as well as an ultrasound to assess for any change in hydronephrosis. He'll be sent likely treated with IV fluids, Zofran, analgesia medications Toradol and morphine. Vital signs within acceptable limits. He was in agreement with this plan. Patient's labs were remarkable for no evidence of infected stone. Normal with blood cell count. Urinalysis remarkable for a small amount of WBCs as well as RBCs which fits his current picture. No obvious infection. There was a long delay in obtaining the urine results. At this time I did update the patient. I recommended that we contact neurology to see the recommendations in terms of his management. He was in agreement with this plan. I did speak with Dr. Burris who is on-call for urology and he recommended the patient receive ureteral stents and follow up outpatient with Dr. Quezada. I did discuss with Dr. Burris that the patient is hesitant regarding stents but Dr. Burris believes that patient is a poor candidate for lithotripsy after reviewing his imaging. I did discuss this with the patient as well as his . They wish to discuss it between themselves further. Following 20 minutes, I did check on the patient again and he did consent to adm ission and would like the stents. He was made nothing by mouth. I notified Dr. Burris regarding the patient's decision. Patient will be admitted under Dr. Burris in stable condition. We will continue IV maintenance fluids as well as pain control. Undiagnosed new problem with uncertain prognosis? @ -No Drug Therapy requiring intensive monitoring for toxicity (Heparin, Nitro, Insulin, Cardizem)? @ -No Were any procedures done? @ -No Diagnosis/symptom? @ -Bilateral ureteral lithiasis with mild-moderate hydronephrosis, symptomatic Acute, or Chronic, or Acute on Chronic? @ -Acute on chronic Uncomplicated (without systemic symptoms) or Complicated (systemic symptoms)? @ -Complicated Side effects of treatment? @ -No Exacerbation, Progression, or Severe Exacerbation? @ -No Poses a threat to life or bodily function? How? (Chest pain, [place], PR, pneumonia, PE, COPD, DKA, ARF, appy, cholecystitis, CVA, Diverticulitis, Homicidal, Suicidal, threat to staff... and all critical care pts) @ -Yes, can result in an organ dysfunction as well as significant infection. Diagnosis/symptom? @ -Intractable abdominal pain Acute, or Chronic, or Acute on Chronic? @ -Acute Uncomplicated (without systemic symptoms) or Complicated (systemic symptoms)? @ -Uncomplicated Side effects of treatment? @ -none Exacerbation, Progression, or Severe Exacerbation] @ -no Poses a threat to life or bodily function? @ -no - Lab Data Result diagrams: 06/18/22 07:39 06/18/22 07:39 Lab Results 06/18/22 06/18/22 06/18/22 Range/Units 07:39 07:39 07:39 WBC 7.0 (3.8-10.6) k/uL RBC 4.69 (4.30-5.90) m/uL Hgb 14.6 (13.0-17.5) gm/dL Hct 42.0 (39.0-53.0) % MCV 89.6 (80.0-100.0) fL MCH 31.2 (25.0-35.0) pg MCHC 34.8 (31.0-37.0) g/dL RDW 12.8 (11.5-15.5) % Plt Count 178 (150-450) k/uL MPV 9.5 Neutrophils % 59 % Lymphocytes % 29 % Monocytes % 6 % Eosinophils % 5 % Basophils % 1 % Neutrophils # 4.2 (1.3-7.7) k/uL Lymphocytes # 2.0 (1.0-4.8) k/uL Monocytes # 0.4 (0-1.0) k/uL Eosinophils # 0.3 (0-0.7) k/uL Basophils # 0.0 (0-0.2) k/uL PT 10.4 (9.0-12.0) sec INR 1.0 (<1.2) APTT 23.1 (22.0-30.0) sec Sodium (137-145) mmol/L Potassium (3.5-5.1) mmol/L Chloride (98-107) mmol/L Carbon Dioxide (22-30) mmol/L Anion Gap mmol/L BUN (9-20) mg/dL Creatinine (0.66-1.25) mg/dL Est GFR (CKD-EPI)AfAm (>60 ml/min/1.73 sqM) Est GFR (CKD-EPI)NonAf (>60 ml/min/1.73 sqM) Glucose (74-99) mg/dL Calcium (8.4-10.2) mg/dL Total Bilirubin (0.2-1.3) mg/dL AST (17-59) U/L ALT (4-49) U/L Alkaline Phosphatase (38-126) U/L Total Protein (6.3-8.2) g/dL Albumin (3.5-5.0) g/dL Urine Color Yellow Urine Appearance Clear (Clear) Urine pH 5.5 (5.0-8.0) Ur Specific [place] 1.016 (1.001-1.035) Urine Protein 1+ H (Negative) Urine Glucose (UA) Negative (Negative) Urine Ketones Negative (Negative) Urine Blood Trace H (Negative) Urine Nitrite Negative (Negative) Urine Bilirubin Negative (Negative) Urine Urobilinogen <2.0 (<2.0) mg/dL Ur Leukocyte Esterase Moderate H (Negative) Urine RBC 16 H (0-5) /hpf Urine WBC 31 H (0-5) /hpf Urine Mucus Rare H (None) /hpf 06/18/22 Range/Units 07:39 WBC (3.8-10.6) k/uL RBC (4.30-5.90) m/uL Hgb (13.0-17.5) gm/dL Hct (39.0-53.0) % MCV (80.0-100.0) fL MCH (25.0-35.0) pg MCHC (31.0-37.0) g/dL RDW (11.5-15.5) % Plt Count (150-450) k/uL MPV Neutrophils % % Lymphocytes % % Monocytes % % Eosinophils % % Basophils % % Neutrophils # (1.3-7.7) k/uL Lymphocytes # (1.0-4.8) k/uL Monocytes # (0-1.0) k/uL Eosinophils # (0-0.7) k/uL Basophils # (0-0.2) k/uL PT (9.0-12.0) sec INR (<1.2) APTT (22.0-30.0) sec Sodium 139 (137-145) mmol/L Potassium 3.9 (3.5-5.1) mmol/L Chloride 106 (98-107) mmol/L Carbon Dioxide 25 (22-30) mmol/L Anion Gap 8 mmol/L BUN 18 (9-20) mg/dL Creatinine 1.24 (0.66-1.25) mg/dL Est GFR (CKD-EPI)AfAm 79 (>60 ml/min/1.73 sqM) Est GFR (CKD-EPI)NonAf 68 (>60 ml/min/1.73 sqM) Glucose 108 H (74-99) mg/dL Calcium 10.7 H (8.4-10.2) mg/dL Total Bilirubin 1.4 H (0.2-1.3) mg/dL AST 36 (17-59) U/L ALT 72 H (4-49) U/L Alkaline Phosphatase 57 (38-126) U/L Total Protein 6.9 (6.3-8.2) g/dL Albumin 4.4 (3.5-5.0) g/dL Urine Color Urine Appearance (Clear) Urine pH (5.0-8.0) Ur Specific [place] (1.001-1.035) Urine Protein (Negative) Urine Glucose (UA) (Negative) Urine Ketones (Negative) Urine Blood (Negative) Urine Nitrite (Negative) Urine Bilirubin (Negative) Urine Urobilinogen (<2.0) mg/dL Ur Leukocyte Esterase (Negative) Urine RBC (0-5) /hpf Urine WBC (0-5) /hpf Urine Mucus (None) /hpf Disposition Clinical Impression: Ureterolithiasis, Intractable abdominal pain, Hydronephrosis Disposition: ADMITTED IP TO THIS [facility] Condition: Stable Time of Disposition: 10:35
[2022-06-18 07:59] LABS: Partial Thromboplastin Time 23.1 sec (22.0-30.0); Prothrombin Time 10.4 sec (9.0-12.0)
[2022-06-18 08:08] LABS: Appearance,Urine Clear (Clear); Bilirubin,Urine Negative (Negative); Blood,Urine Trace (Negative); Color,Urine Yellow; Glucose,Urine (UA) Negative (Negative); Ketones,Urine Negative (Negative); Leukocyte Esterase,Urine Moderate (Negative); Mucus,Urine Rare /hpf; Nitrite,Urine Negative (Negative); PH, Urine 5.5 (5.0-8.0); Protein,Urine 1+ (Negative); RBC,Urine 16 /hpf (0-5); Specific Gravity,Urine 1.016 (1.001-1.035); Urobilinogen,Urine <2.0 mg/dL (<2.0); WBC,Urine 31 /hpf (0-5)
[2022-06-18 08:09] LABS: Albumin 4.4 g/dL (3.5-5.0); Calcium 10.7 mg/dL (8.4-10.2); Potassium 3.9 mmol/L (3.5-5.1); Total Bilirubin 1.4 mg/dL (0.2-1.3); Total Protein 6.9 g/dL (6.3-8.2)
--- NOTE | 2022-06-18 08:53 | US ---
EXAMINATION TYPE: US renals and bladder DATE OF EXAM: 06/18/2022 COMPARISON: CLINICAL HISTORY: eval for hydronephrosis. bilateral kidney stones. Bilateral stones. Right side donte n. EXAM MEASUREMENTS: Right Kidney: 11.5 x 6.6 x 7.9 cm Left Kidney: 11.9 x 5.3 x 6.0 cm Right Kidney: Mild/moderate hydronephrosis. Stones visualized with largest seen lower pole 0.8 cm. Left Kidney: Mild hydronephrosis. Stones visualized with largest in lower pole = 1.9 cm. Mid/medial cortical cystic appearing lesion= 3.1 x 3.0 x 2.8 cm. Bladder: distended, anechoic. Two right UVJ stones seen measuring = 1.3 cm and 0.9 cm. One left UVJ stone measuring 0.6 cm Bilateral Jets seen No masses are identified. The urinary bladder is anechoic. Bilateral ureteral jets are seen. IMPRESSION: Bilateral hydronephrosis and nephrolithiasis as noted above. Bilateral UVJ calculi seen as well.
[2022-06-18] MEDS ORDERED: KETOROLAC 15 MG/ML 1 ML VIAL IVP PRN (10:42)
[2022-06-18] MEDS ORDERED: MORPHINE SULFATE 4 MG/ML SYRINGE IV PRN (10:42)
[2022-06-18] MEDS ORDERED: NALOXONE 0.4 MG/ML 1 ML VIAL IV PRN (10:42)
[2022-06-18] MEDS: SODIUM CHLORIDE 0.9% 1,000 ML IV SCH ×2 (11:26→19:53)
--- NOTE | 2022-06-18 12:55 | P.GSHP ---
History of Present Illness H&P Date: 06/18/22 Chief Complaint: Right flank pain The patient is a 51-year-old male with a past medical history of multiple kidney stones. The patient presented to the emergency department on 06/18/22 with concerns of right flank pain He is well known to Dr. Miller. The patient states he has been dealing with right flank pain pain intermittently for approximately a month now. At one point he thought her may have passed the stones, as the pain subsided. Then he developed bladder irritation and went to his PCP to rule out a UTI. He saw Dr. Miller for a follow up on Friday who ordered an abd/pelvis CT which showed bilateral nephrolithiasis with bilateral distal ureteral calculi measuring 8-9 mm, no significant hydronephrosis. - Constitutional Constitutional: Denies chills, Denies fever - Cardiovascular Cardiovascular: Denies chest pain, Denies shortness of breath - Respiratory Respiratory: Denies cough - Gastrointestinal Gastrointestinal: Denies nausea, Denies vomiting - Genitourinary (Female) Genitourinary: Reports flank pain, Reports hematuria, Denies urinary frequency Past Medical History Additional Past Medical History / Comment(s): Kidney stones History of Any Multi-Drug Resistant Organisms: None Reported Past Surgical History: Hernia Repair Additional Past Surgical History / Comment(s): Lithrotripsy Past Psychological History: No Psychological Hx Reported Smoking Status: Never smoker Past Alcohol Use History: None Reported Past Drug Use History: None Reported Medications and Allergies Home Medications Medication Instructions Recorded Confirmed Type Terbinafine [LamISIL] 250 mg PO DAILY 06/18/22 06/18/22 History Allergies Allergy/AdvReac Type Severity Reaction Status Date / Time No Known Allergies Allergy Verified 06/18/22 08:53 Surgical - Exam Vital Signs Temp Pulse Resp BP Pulse Ox 98 F 76 16 174/92 98 06/18/22 07:10 06/18/22 07:10 06/18/22 07:10 06/18/22 07:10 06/18/22 07:10 General: Well developed, well nourished. No acute distress. HEENT: Head is atraumatic, normocephalic. Lungs: Respirations even and nonlabored. Abdomen/GI: Soft, non-distended. No guarding, rigidity, or abdominal tenderness. : Normal phallus, normal urethral meatus. The scrotum and testes are normal. Right flank tenderness. Skin: Warm and dry Neurologic: Alert and oriented 3, CN II-XII grossly intact. No focal deficits. Psychiatric: Appropriate mood and affect. Results - Labs 06/18/22 07:39 06/18/22 07:39 Abnormal Lab Results - Last 24 Hours (Table) 06/18/22 06/18/22 Range/Units 07:39 07:39 Glucose 108 H (74-99) mg/dL Calcium 10.7 H (8.4-10.2) mg/dL Total Bilirubin 1.4 H (0.2-1.3) mg/dL ALT 72 H (4-49) U/L Urine Protein 1+ H (Negative) Urine Blood Trace H (Negative) Ur Leukocyte Esterase Moderate H (Negative) Urine RBC 16 H (0-5) /hpf Urine WBC 31 H (0-5) /hpf Urine Mucus Rare H (None) /hpf Diabetes panel 06/18/22 Range/Units 07:39 Sodium 139 (137-145) mmol/L Potassium 3.9 (3.5-5.1) mmol/L Chloride 106 (98-107) mmol/L Carbon Dioxide 25 (22-30) mmol/L BUN 18 (9-20) mg/dL Creatinine 1.24 (0.66-1.25) mg/dL Glucose 108 H (74-99) mg/dL Calcium 10.7 H (8.4-10.2) mg/dL AST 36 (17-59) U/L ALT 72 H (4-49) U/L Alkaline Phosphatase 57 (38-126) U/L Total Protein 6.9 (6.3-8.2) g/dL Albumin 4.4 (3.5-5.0) g/dL Calcium panel 06/18/22 Range/Units 07:39 Calcium 10.7 H (8.4-10.2) mg/dL Albumin 4.4 (3.5-5.0) g/dL Pituitary panel 06/18/22 Range/Units 07:39 Sodium 139 (137-145) mmol/L Potassium 3.9 (3.5-5.1) mmol/L Chloride 106 (98-107) mmol/L Carbon Dioxide 25 (22-30) mmol/L BUN 18 (9-20) mg/dL Creatinine 1.24 (0.66-1.25) mg/dL Glucose 108 H (74-99) mg/dL Calcium 10.7 H (8.4-10.2) mg/dL Adrenal panel 06/18/22 Range/Units 07:39 Sodium 139 (137-145) mmol/L Potassium 3.9 (3.5-5.1) mmol/L Chloride 106 (98-107) mmol/L Carbon Dioxide 25 (22-30) mmol/L BUN 18 (9-20) mg/dL Creatinine 1.24 (0.66-1.25) mg/dL Glucose 108 H (74-99) mg/dL Calcium 10.7 H (8.4-10.2) mg/dL Total Bilirubin 1.4 H (0.2-1.3) mg/dL AST 36 (17-59) U/L ALT 72 H (4-49) U/L Alkaline Phosphatase 57 (38-126) U/L Total Protein 6.9 (6.3-8.2) g/dL Albumin 4.4 (3.5-5.0) g/dL - Imaging CT scan - abdomen: report reviewed, image reviewed CT scan - pelvis: report reviewed, image reviewed US - kidney/bladder: report reviewed Assessment and Plan Assessment: The patient is resting in bed. His is present. He denies any current flank, abdominal, or groin pain. No fever,chills, nausea or vomiting. He re ports having darker urine recently that he believes is hematuria and has been having pain with urination. He denies any urgency or frequency. No history of bladder, renal, or prostate cancer. The patient will proceed to the OR this afternoon with Dr. Burris for a cystoscopy and bilateral ureteral stent insertion. A secondary procedure will be planned for stone removal on an outpatient basis. (1) Hydronephrosis with obstructing calculus Current Visit: Yes Status: Acute Code(s): N13.2 - HYDRONEPHROSIS WITH RENAL AND URETERAL CALCULOUS OBSTRUCTION SNOMED Code(s): 22171879 (2) Ureterolithiasis Current Visit: Yes Status: Acute Code(s): N20.1 - CALCULUS OF URETER SNOMED Code(s): 07019267 Plan: - Awaiting urine cultures - Keep NPO - Continue current pain regimen - OR today for a cystoscopy and bilateral ureteral stent placement with Dr. Burris. Rationale D/W patient in detail. Risks reviewed as well. Possible need for ureteroscopy to place stents discussed. Impression and plan of care have been directed as dictated by the signing physician. Jesica Murray nurse practitioner acting as scribe for signing physician. Jesica Murray [facility] [id number] Email: [email or web address] I have personally seen and examined the patient, reviewed the documentation and agree with the assessment and plan as written. Number of minutes spent on the visit: 40. Phuc Burris MD Time with Patient: Greater than 30
[2022-06-18] MEDS ORDERED: IV FLUID CONTINUATION 1,000 ML IV ONE (13:51)
[2022-06-18] MEDS ORDERED: ONDANSETRON 4 MG/2 ML VIAL ONE (13:56)
[2022-06-18] MEDS ORDERED: DEXAMETHASONE SOD PHOSPHATE 4 MG/ML 1 ML VIAL IVP ONE (13:57)
[2022-06-18] MEDS ORDERED: ONDANSETRON 4 MG/2 ML VIAL IVP ONE (13:57)
[2022-06-18] MEDS ORDERED: fentaNYL (PF) 50 MCG/ML 2 ML AMP ONE (14:25)
[2022-06-18] MEDS ORDERED: MIDAZOLAM 2 MG/2 ML VIAL ONE (14:25)
[2022-06-18] MEDS ORDERED: PROPOFOL 10 MG/ML 20 ML VIAL IV ONE (14:25)
[2022-06-18] MEDS ORDERED: LIDOCAINE 2% INJ 20 MG/ML (2 ML VIAL) ONE (14:25)
--- NOTE | 2022-06-18 15:34 | P.OP ---
Date of Procedure: 06/18/22 Preoperative Diagnosis: Bilateral ureteral calculi Postoperative Diagnosis: Same Procedure(s) Performed: Cystoscopy, bilateral ureteral stent insertion, right ureteroscopy Anesthesia: BRENNAA Surgeon: Phuc Burris Estimated Blood Loss (ml): 0 IV fluids (ml): 600 Pathology: none sent Condition: stable Disposition: PACU Indications for Procedure: The patient is a 51-year-old white male with a history of recurrent urolithiasis. He now presents with renal colic and has been found to have large bilateral distal ureteral calculi. He has elected to undergo ureteral stent placement. Operative Findings: Bilateral obstructing distal ureteral calculi. Successful stent placement. Description of Procedure: The patient was taken to the operating room and placed in the dorsolithotomy position, with legs supported in Krunal stirrups. The external genitalia was prepped and draped sterilely. The 30 lens was used to introduce the 22-Bruneian Stortz cystoscopic sheath through the urethra and into the bladder under direct vision. The prostatic urethra showed evidence of mild lateral lobe enlargement, along with a high median bar. The bladder was examined in its entirety. Both ureteral orifices were of normal anatomic location and configuration; mild edema surrounded the right ureteral orifice. No tumors or foreign bodies were seen. An angle-tip 0.035 inch Glidewire was passed through the cystoscope. The left ureteral orifice was cannulated, and the Glidewire was slowly advanced up to the renal pelvis. A 26 cm, 6-Bruneian double-J ureteral stent was placed over the wire. Proper stent positioning was verified fluoroscopically and endoscopically. The same was then repeated on the contralateral side. However, the Glidewire could not be passed beyond the right distal ureteral calculus, which was impacted. The cystoscope was removed, and the ACMI semirigid ureteroscope was advanced into the bladder under direct vision. The right ureteral orifice was cannulated, and the ureteroscope was advanced up to the calculus. The ureteroscope was used to dislodge the calculus, at which time it was possible to pass the Glidewire through the ureteroscope and up to the right renal pelvis, lower coil. The ureteroscope was removed, and the Glidewire was backloaded into the cystoscope, which was passed into the bladder. A 26 cm, 6- Bruneian double-J ureteral stent was placed over the wire. Proper stent positioning was verified fluoroscopically and endoscopically. The bladder was emptied and the cystoscope removed. The patient tolerated the procedure well was taken to the recovery room in stable condition.
[2022-06-18 16:01] VITALS: RESP 16
[2022-06-18 17:31] VITALS: TEMP 97.7
[2022-06-18 17:32] VITALS: BP 151/98; PULSE 67
--- NOTE | 2022-06-18 19:29 | FL ---
Intraoperative/procedural fluoroscopic services were provided. Total fluoroscopy time is 37 seconds w ith a total of 7 submitted images to PACS. Please see the operative/procedural note for further detai ls. DAP: [id number]
--- NOTE | 2022-06-18 19:57 | P.DS ---
Providers Date of admission: 06/18/22 10:42 Expected date of discharge: 06/18/22 Attending physician: Phuc Burris Primary care physician: Jeff Koo MD - Discharge Diagnosis(es) (1) Hydronephrosis with obstructing calculus Current Visit: Yes Status: Acute (2) Ureterolithiasis Current Visit: Yes Status: Acute Hospital Course: The patient is a 51-year-old white male with a history of recurrent urolithiasis. He presented to the ER with right flank pain radiating to the penis. CT scan showed large bilateral distal ureteral calculi. He was admitted and treated with parenteral analgesics and antibiotics. He underwent bilateral ureteral stent insertion. Subsequently, his pain was resolved and he was discharged home. Procedures: Cystoscopy, right ureteroscopy, bilateral ureteral stent insertion on 06/18/2022. Patient Condition at Discharge: Good Plan - Discharge Summary New Discharge Prescriptions: New Tamsulosin [Flomax] 0.4 mg PO DAILY #30 cap Phenazopyridine [Pyridium] 200 mg PO TID #9 tablet Ketorolac [Toradol] 10 mg PO Q6HR PRN #10 tab PRN Reason: Pain No Action Terbinafine [LamISIL] 250 mg PO DAILY Discharge Medication List Ketorolac [Toradol] 10 mg PO Q6HR PRN #10 tab 06/18/22 [Rx] Phenazopyridine [Pyridium] 200 mg PO TID #9 tablet 06/18/22 [Rx] Tamsulosin [Flomax] 0.4 mg PO DAILY #30 cap 06/18/22 [Rx] Terbinafine [LamISIL] 250 mg PO DAILY 06/18/22 [History] Follow up Appointment(s)/Referral(s): Jeff oKo MD [Primary Care Provider] - 1-2 days Patient Instructions/Handouts: Hydronephrosis (DC), Urethral Stent Placement (DC) Activity/Diet/Wound Care/Special Instructions: Diet as tolerated. Activity as tolerated. Drink plenty of fluids. Patient will be contacted by Dr. Miller's office to arrange follow-up. Discharge Disposition: HOME SELF-CARE
== END 2022-06-18 20:07 | disposition home or self-care (01) ==
LOC: EC 07:08 → 6NMEDSUR 10:42
PROVIDERS: ADMIT Urology; ATTEND Urology
DX: N13.2 Hydronephrosis with renal and ureteral calculous obstruction (principal); Z87.442 Personal history of urinary calculi; Z98.890 Other specified postprocedural states; Z79.899 Other long term (current) drug therapy
CPT/HCPCS: 96374; 96375; 99285; 36415; 80053; 85025; 85610; 85730; 81001; 87086; 76770; 52332; G0378; C1769; J2250; J2270; J1100; J0690; J2405; J3010; J1885; J2704; J2001

== ENCOUNTER → 2022-06-26 | Outpatient (CLI) | payer SELFPAY ==
[2022-06-26 15:06] LABS: HGB 15.8 g/dL (13.0-17.0); MCHC 33.6 g/dL (32.0-37.0); MCV 92.2 fL (80.0-97.0); Mean Platelet Volume 12.2 fL (9.5-12.2); NRBC Per 100 WBC 0 /100 WBCS (0.0-0.0); Platelet Count 223 X 10*3/uL (140-440); RDW 12.8 % (11.5-14.5); WBC 6.29 X 10*3/uL (4.50-10.00)
[2022-06-26 15:24] LABS: African American GFR (CKD) 74.3 (60.0-200.0); Albumin 4.7 g/dL (3.8-4.9); Albumin/Globulin Ratio 2.35 (1.60-3.17); Anion Gap 9.2 mmol/L (10.00-18.00); BUN/Creat Ratio 13.77 Ratio (12.00-20.00); Blood Urea Nitrogen 17.9 mg/dL (9.0-27.0); Calcium 11.5 mg/dL (8.7-10.3); Carbon Dioxide 23.8 mmol/L (20.0-27.5); Non-African American GFR(CKD) 64.1 (60.0-200.0); Potassium 4.7 mmol/L (3.5-5.5); Total Bilirubin 1.5 mg/dL (0.30-1.20); Total Protein 6.7 g/dL (6.2-8.2)
[2022-06-26 16:00] LABS: Appearance,Urine Cloudy (Clear); Bilirubin,Urine Small (Negative); Blood,Urine Large (Negative); Color,Urine Orange (Yellow); Ketones,Urine Trace mg/dL (Negative); Nitrite,Urine Negative (Negative); Specific Gravity,Urine 1.018 (1.001-1.030); Urobilinogen,Urine 0.2 (0.2,1.0)
[2022-06-26 16:12] LABS: Bacteria,Urine Trace /HPF (None Seen)
== END | disposition home or self-care (01) ==
LOC: LABPAT 08:29
PROVIDERS: ATTEND Urology
DX: Z01.812 Encounter for preprocedural laboratory examination (principal); N20.1 Calculus of ureter; R31.29 Other microscopic hematuria
CPT/HCPCS: 36415; 80053; 81001; 85027; 87086

== ENCOUNTER 2022-07-10 08:46 | Day surgery (SDC) | payer BC ==
[2022-07-05 09:56] VITALS: BMI 28.7
--- NOTE | 2022-07-09 18:30 | P.GSHP ---
History of Present Illness H&P Date: 07/09/22 51 yo male recently in the hospital with bilateral obstructing ureteral stones and renal failure. He required bilateral ureteral stents. He now comes for bilateral ureteroscopy with laser lithotripsy stone and hopefully stent removal. He also has bilateral renal stones that will have to be dealt with at a later date. - Constitutional Constitutional: Denies chills, Denies fever - EENT Eyes: denies blurred vision, denies pain Ears, nose, mouth and throat: Denies headache, Denies sore throat - Cardiovascular Cardiovascular: Denies chest pain, Denies shortness of breath - Respiratory Respiratory: Denies cough, Denies 7 - Gastrointestinal Gastrointestinal: Denies abdominal pain, Denies diarrhea, Denies nausea, Denies vomiting - Genitourinary (Female) Genitourinary: Denies dysuria, Denies hematuria - Genitourinary (Male) Genitourinary: Denies dysuria, Denies hematuria - Musculoskeletal Musculoskeletal: Denies myalgias - Integumentary Integumentary: Denies pruritus, Denies rash - Neurological Neurological: Denies numbness, Denies weakness - Psychiatric Psychiatric: Denies anxiety, Denies depression - Endocrine Endocrine: Denies fatigue, Denies weight change Past Medical History Additional Past Medical History / Comment(s): Kidney stones History of Any Multi-Drug Resistant Organisms: None Reported Past Surgical History: Hernia Repair Additional Past Surgical History / Comment(s): Lithrotripsy Past Anesthesia/Blood Transfusion Reactions: No Reported Reaction Past Psychological History: No Psychological Hx Reported Smoking Status: Never smoker Past Alcohol Use History: None Reported Past Drug Use History: None Reported - Past Family History Mother Family Medical History: No Reported History Medications and Allergies Home Medications Medication Instructions Recorded Confirmed Type No Known Home Medications 07/05/22 07/05/22 History Allergies Allergy/AdvReac Type Severity Reaction Status Date / Time No Known Allergies Allergy Verified 07/05/22 09:51 Surgical - Exam - General well developed, well nourished, no distress - Eyes normal ocular movement, no icteric - ENT no hearing loss, no congestion - Neck no masses, trachea midline - Respiratory normal respiratory effort, clear to auscultation - Abdomen Abdomen: soft, non tender, no guarding, no rigid, no rebound - Integumentary no rash, no abnormal pigmentation - Neurologic no disoriented, no combative - Psychiatric oriented to time, oriented to person, oriented to place, speech is normal, memory intact Results - Imaging CT scan - abdomen: report reviewed, image reviewed CT scan - pelvis: report reviewed, image reviewed Assessment and Plan Assessment: Impression: Bilateral ureteral stones with stents. Bilateral renal stones Plan: bilateral ureteroscopy with laser lithotripsy stone and hopefully stent removal
[~2022-07-10 08:46] MED LIST changes: +DEXAMETHASONE SOD PHOSPHATE 4 MG/ML 1 ML VIAL IV ONE; +LIDOCAINE 1% (10MG/ML) FOR IV START INTRADERMA PRN; +ONDANSETRON 4 MG/2 ML VIAL IVP ONE
--- NOTE | 2022-07-10 09:16 | XR ---
EXAMINATION TYPE: XR KUB DATE OF EXAM: 07/10/2022 COMPARISON: 04/26/2022 HISTORY: Bilateral kidney stones TECHNIQUE: One view abdominal series FINDINGS: The osseous structures are intact. The bowel gas pattern is nonspecific. Lung bases are clear. Doub le-J right-sided ureteral stent is seen. There is a left-sided ureteral stent. There are calcificatio ns involving the upper pole the left kidney measuring 6.5 mm and lower pole measuring 5.6 and 5.5 mm representing a fragmented calcification. Upper pole right-sided renal calculus is not seen with certa inty today's exam. Remaining pelvic calcifications are likely vascular. IMPRESSION: 1. Stable left-sided nephrolithiasis. Right-sided the previous calculus is no longer identified. [place] td, there is a calculus along the distal course of the right ureter measuring a diameter of 5 mm..
[2022-07-10] MEDS ORDERED: PROPOFOL 10 MG/ML 20 ML VIAL IV ONE (10:55)
[2022-07-10] MEDS ORDERED: MIDAZOLAM 2 MG/2 ML VIAL ONE (10:55)
[2022-07-10] MEDS ORDERED: LIDOCAINE 2% INJ 20 MG/ML (2 ML VIAL) ONE (10:55)
[2022-07-10] MEDS ORDERED: SUCCINYLCHOLINE CHLORIDE 200 MG/10 ML VIAL IV ONE (10:55)
[2022-07-10] MEDS ORDERED: fentaNYL (PF) 50 MCG/ML 2 ML AMP ONE (10:55)
[2022-07-10] MEDS ORDERED: LACTATED RINGERS 1,000 ML IV ONE (12:02)
[2022-07-10 12:18] VITALS: TEMP 97.1
--- NOTE | 2022-07-10 12:35 | FL ---
EXAMINATION TYPE: FL guidance operating room DATE OF EXAM: 07/10/2022 HISTORY: Fluoroscopy time Total dose area product (DAP) in mGy*cm? (or similar): 1. 03/16/1996 IMPRESSION: 1. Fluoroscopy time.
[2022-07-10] MEDS: HYDROmorphone 0.5 MG/0.5 ML SYRINGE IVP PRN ×3 (12:40→13:35)
--- NOTE | 2022-07-10 13:12 | P.OP ---
Date of Procedure: 07/10/22 Preoperative Diagnosis: Bilateral ureteral stones Postoperative Diagnosis: Same Procedure(s) Performed: Cystoscopy, removal of bilateral double-J catheters, bilateral ureteroscopy with laser lithotripsy and stone basketing Anesthesia: ALFRED Surgeon: Nash Miller Estimated Blood Loss (ml): 10 Pathology: other (Stone) Condition: stable Disposition: PACU Indications for Procedure: The patient is 51. She recently was in the hospital with bilateral large distal ureteral stones with obstruction and acute renal failure. He had bilateral double-J catheters placed. He now comes for removal of both stents and stones. Description of Procedure: Patient is brought to the operating suite. He is given general anesthesia on the operating table. He's placed in lithotomy position with a sterile prep and drape. Cystoscopy a Foroblique lens and 21-Moldovan sheath identifies a normal urethra. The prostate is somewhat inflamed due to the stents. The bladder wall was inflamed due to the stents. It is otherwise unremarkable. The right stent is grasped and removed to the urethral meatus. An 035 wires passed through the stent up into the kidney. The stent was removed Alongside the wire ureteroscope was passed in the right distal ureter. A 1 cm distal stone was identified and lasered with a 375 laser probe. There is a proximal stone of this about 6-7 mm that is also laser. The larger fragments are basketed. There is no remaining significant stone. I then addressed the left ureter. Again I passed an 035 wire through the stent. The stent was removed. Alongside the wire the semirigid ureteroscope was passed to the distal ureteral stone on the left. The stone was broken into tiny pieces with the 375 probe in the larger fragments basketed. There are no remaining fragments. The bladder is drained of fragments up. The orifices cherie ear patent. Bladder is drained the patient is awake and returned recovery room good condition. Blood loss is at most 10 mL. He tolerated procedure well be discharged home upon recovery.
[2022-07-10] MEDS ORDERED: HYDROcodone/APAP 5-325MG 1 EACH TAB ONE ×2 (14:02→14:27)
[2022-07-10] MEDS ORDERED: HYDROcodone/APAP 5-325MG 1 EACH TAB PO ONE (14:03)
[2022-07-10 14:27] VITALS: RESP 20
[2022-07-10] MEDS ORDERED: HYDROcodone/APAP 5-325MG 1 EACH TAB OG-TUBE ONE (14:28)
[2022-07-10 14:59] VITALS: BP 136/86; PULSE 66
== END 2022-07-10 15:40 | disposition home or self-care (01) ==
LOC: OR 08:46
PROVIDERS: ATTEND Urology
DX: N20.2 Calculus of kidney with calculus of ureter (principal)
CPT/HCPCS: 82365; 74018; 52353; J2250; J0330; J0690; J3010; J2704; J1170; J2001

== ENCOUNTER → 2022-08-16 | Outpatient (CLI) | payer BC ==
--- NOTE | 2022-08-16 16:33 | XR ---
EXAMINATION TYPE: XR KUB DATE OF EXAM: 08/16/2022 Comparison: 07/10/2022 Clinical History: 51-year-old male N20.0 Findings: A few left-sided nonobstructive renal calculi ranging in size from 8 mm to 10 mm. 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 Multiple pelvic phleboliths. The p revious lateral ureteral stents have been removed. Mild to moderate stool within the right side of th e abdomen. Nonobstructive bowel gas pattern. Impression: Interval removal of the patient's right-sided ureteral stents. Nonobstructive left-sided nephrolithia sis measuring up to 1 cm.
== END | disposition home or self-care (01) ==
LOC: RADXRMAIN 16:03
PROVIDERS: ATTEND Urology
DX: Z45.82 Encounter for adjustment or removal of myringotomy device (stent) (tube) (principal); N20.0 Calculus of kidney
CPT/HCPCS: 74018

== ENCOUNTER → 2022-09-09 | Outpatient (CLI) | payer BC ==
--- NOTE | 2022-09-11 00:13 | XR ---
EXAMINATION TYPE: XR KUB DATE OF EXAM: 09/09/2022 COMPARISON: None INDICATION: Renal calculus TECHNIQUE: Single view abdomen FINDINGS: There is a normal bowel gas pattern. There is a 1.6 cm inferior pole left renal calculus. A0.4 cm right renal calculus may be present. No organomegaly is present. IMPRESSION: 1. Bilateral renal stones. This appears less distinct on the left post lithotripsy.
== END | disposition home or self-care (01) ==
LOC: RADXRMAIN 17:03
PROVIDERS: ATTEND Urology
DX: N20.0 Calculus of kidney (principal)
CPT/HCPCS: 74018

== ENCOUNTER → 2023-05-07 | Outpatient (CLI) | payer BC ==
--- NOTE | 2023-05-07 13:46 | XR ---
EXAMINATION TYPE: XR KUB DATE OF EXAM: 05/07/2023 1:01 PM CLINICAL INDICATION:Male, 52 years old with history of N20.0 calculus; COMPARISON: None. TECHNIQUE: One radiographic view of the abdomen was obtained. FINDINGS: Multiple left renal calculi measuring up to 17 mm. No right renal calculi. The bowel gas pa ttern is nonspecific without dilated loops of small or large bowel. There is no evidence for organome vanessa or pneumoperitoneum. The osseous structures are intact. Fecal material and gas are demonstrate d throughout the colon and rectum. IMPRESSION: Left renal calculi.
== END | disposition home or self-care (01) ==
LOC: RADXRMAIN 12:49
PROVIDERS: ATTEND Urology
DX: N20.0 Calculus of kidney (principal)
CPT/HCPCS: 74018

== ENCOUNTER → 2023-09-24 | Outpatient (CLI) | payer BC ==
--- NOTE | 2023-09-24 21:20 | XR ---
EXAMINATION TYPE: XR KUB DATE OF EXAM: 09/24/2023 Comparison: 05/07/2023 Clinical History: 53-year-old male N20.0 CALCULUS OF KIDNEY Findings: Redemonstrated left-sided renal calculi. These calcifications measure up to 1.6 cm and 5 mm. Faint ri ght-sided renal calcification measuring 4 mm. Nonobstructive bowel gas pattern. Scattered mild stool. Pelvic phlebolith. Impression: Bilateral nephrolithiasis measuring up to 1.6 cm on the left.
== END | disposition home or self-care (01) ==
LOC: RADXRMAIN 14:19
PROVIDERS: ATTEND Urology
DX: N20.0 Calculus of kidney (principal)
CPT/HCPCS: 74018

== ENCOUNTER → 2024-01-28 | Outpatient (CLI) | payer BC ==
--- NOTE | 2024-01-28 13:48 | XR ---
EXAMINATION TYPE: XR KUB DATE OF EXAM: 01/28/2024 1:13 PM COMPARISON: 09/27/2023. CLINICAL INDICATION: Male, 53 years old with history of CALCULUS-KIDNEY N20.0; [facility] TECHNIQUE: One radiographic view of the abdomen was obtained. FINDINGS: The bowel gas pattern is nonspecific without dilated loops of small or large bowel. . Fecal material and gas are demonstrated throughout the colon and rectum. There is no evidence for organomegaly or pneumoperitoneum. The osseous structures are intact. Bilat eral renal calculi measuring up to 6 mm on the right and 16 mm on the left. IMPRESSION: 1. Bilateral renal calculi similar to prior. 2. Nonspecific bowel gas pattern without radiographic evidence for acute process. [facility], , 01/28/2024 1:46 PM
== END | disposition home or self-care (01) ==
LOC: RADXRMAIN 12:39
PROVIDERS: ATTEND Urology
DX: N20.0 Calculus of kidney (principal)
CPT/HCPCS: 74018

== ENCOUNTER → 2024-06-23 | Outpatient (CLI) | payer BC ==
--- NOTE | 2024-06-23 14:47 | XR ---
EXAMINATION TYPE: XR KUB DATE OF EXAM: 06/23/2024 2:24 PM COMPARISON: 01/28/2024 CLINICAL INDICATION: Male, 53 years old with history of N20.0 Calculus kidney; PHH, pain TECHNIQUE: One radiographic view of the abdomen was obtained. FINDINGS: Bilateral mid abdominal calcification, 2 dominant calcifications on the left measuring 1.6 cm and 0.7 cm, relatively similar. On the right, calcifications measuring up to 6 mm also similar. Pe lvic phleboliths are unchanged. Not certain about gas pattern. Mild overall stool burden. IMPRESSION: Redemonstrated bilateral nephrolithiasis measuring up to 1.6 cm on the left and 6 mm on the right. [facility], Workstation: [id number], 06/23/2024 2:44 PM
== END | disposition home or self-care (01) ==
LOC: RADXRMAIN 14:08
PROVIDERS: ATTEND Urology
DX: N20.0 Calculus of kidney (principal)
CPT/HCPCS: 74018

== ENCOUNTER → 2024-07-05 | Outpatient (CLI) | payer BC ==
[2024-07-06 02:14] LABS: Basophils # (A) 0.08 X 10*3/uL (0.00-0.10); Eosinophils # (A) 0.36 X 10*3/uL (0.04-0.35); Eosinophils % (A) 4.6 %; HCT 45.9 % (39.6-50.0); HGB 15.8 g/dL (13.0-17.0); Lymphocytes # (A) 2.42 X 10*3/uL (0.90-5.00); Lymphocytes % (A) 30.8 %; MCH 31.5 pg (27.0-32.0); MCHC 34.4 g/dL (32.0-37.0); MCV 91.4 FL (80.0-97.0); Mean Platelet Volume 12.2 FL (9.5-12.2); Monocytes # (A) 0.66 X 10*3/uL (0.20-1.00); Monocytes % (A) 8.4 %; NRBC Per 100 WBC 0 X 10*3/uL (0.00-0.01); Neutrophils % (A) 54.8 %; Platelet Count 220 X 10*3/uL (140-440); RBC 5.02 X 10*6/uL (4.40-5.60); RDW 12.9 % (11.5-14.5); WBC 7.85 X 10*3/uL (4.50-10.00)
[2024-07-06 03:52] LABS: Appearance,Urine Clear (Clear); Bilirubin,Urine Negative (Negative); Blood,Urine Negative (Negative); Color,Urine Yellow (Yellow); Ketones,Urine Negative (Negative); Nitrite,Urine Negative (Negative); Specific Gravity,Urine 1.014 (1.001-1.030)
[2024-07-06 04:14] LABS: BUN/Creat Ratio 11.75 Ratio (12.00-20.00); Blood Urea Nitrogen 14.1 mg/dL (9.0-27.0); Carbon Dioxide 24.5 mmol/L (21.6-31.8); Chloride 108 mmol/L (96-109); Glucose 90 mg/dL (70-110); Potassium 4.4 mmol/L (3.5-5.5); Sodium 143 mmol/L (135-145)
[2024-07-06 04:34] LABS: Bacteria,Urine None Seen (None Seen); Calcium Oxalate Crystals,Urine Present (None Seen)
== END | disposition home or self-care (01) ==
LOC: LABPAT 15:48
PROVIDERS: ATTEND Urology
DX: Z01.812 Encounter for preprocedural laboratory examination (principal); N20.0 Calculus of kidney
CPT/HCPCS: 80048; 81001; 85025; 87086

== ENCOUNTER 2024-07-07 07:59 | Day surgery (SDC) | payer BC ==
--- NOTE | 2024-07-06 09:35 | P.GSHP ---
History of Present Illness H&P Date: 07/06/24 53-year-old gentleman with a history of active urolithiasis. He has had previous surgical procedures. He has 2 stones in his left kidney. He was given treatment options and initially just decided to watch them but he is starting to have some discomfort. We discussed treatment options he comes for left ureteroscopy with laser lithotripsy and stone basketing. Complications alternatives have been discussed. The need for a stent has been discussed. - Constitutional Constitutional: Denies chills, Denies fever - EENT Eyes: denies blurred vision, denies pain Ears, nose, mouth and throat: Denies headache, Denies sore throat - Cardiovascular Cardiovascular: Denies chest pain, Denies shortness of breath - Respiratory Respiratory: Denies cough, Denies 7 - Gastrointestinal Gastrointestinal: Denies abdominal pain, Denies diarrhea, Denies nausea, Denies vomiting - Genitourinary (Female) Genitourinary: Denies dysuria, Denies hematuria - Genitourinary (Male) Genitourinary: Denies dysuria, Denies hematuria - Musculoskeletal Musculoskeletal: Denies myalgias - Integumentary Integumentary: Denies pruritus, Denies rash - Neurological Neurological: Denies numbness, Denies weakness - Psychiatric Psychiatric: Denies anxiety, Denies depression - Endocrine Endocrine: Denies fatigue, Denies weight change Past Medical History Additional Past Medical History / Comment(s): Kidney stones History of Any Multi-Drug Resistant Organisms: None Reported Past Surgical History: Hernia Repair Additional Past Surgical History / Comment(s): Lithrotripsies Past Anesthesia/Blood Transfusion Reactions: No Reported Reaction Smoking Status: Never smoker - Past Family History Mother Family Medical History: No Reported History Medications and Allergies Home Medications Medication Instructions Recorded Confirmed Type Loratadine [Claritin] 10 mg PO DAILY 07/06/24 07/06/24 History Allergies Allergy/AdvReac Type Severity Reaction Status Date / Time No Known Allergies Allergy Verified 07/10/22 09:27 Surgical - Exam - General well developed, well nourished, no distress - Eyes normal ocular movement, no icteric - ENT no hearing loss, no congestion - Neck no masses, trachea midline - Respiratory normal respiratory effort, clear to auscultation - Abdomen Abdomen: soft, non tender, no guarding, no rigid, no rebound - Integumentary no rash, no abnormal pigmentation - Neurologic no disoriented, no combative - Psychiatric oriented to time, oriented to person, oriented to place, speech is normal, memory intact Results - Imaging Abdominal x-ray: report reviewed, image reviewed Assessment and Plan Assessment: Impression: Left renal stones with colic Recommendations: Left ureteroscopy with laser lithotripsy
[~2024-07-07 07:59] MED LIST changes: +HYDROmorphone 0.5 MG/0.5 ML SYRINGE IVP PRN; -LACTATED RINGERS 1,000 ML IV SCH; -LIDOCAINE 1% (10MG/ML) FOR IV START INTRADERMA PRN; -MIDAZOLAM 2 MG/2 ML VIAL IV PRN; +fentaNYL (PF) 50 MCG/ML 2 ML AMP IV PRN
[2024-07-07 08:29] VITALS: TEMP 97
[2024-07-07] MEDS: IV FLUID CONTINUATION 1,000 ML IV ONE ×2 (08:29)
--- NOTE | 2024-07-07 08:34 | XR ---
EXAMINATION TYPE: XR KUB DATE OF EXAM: 07/07/2024 8:12 AM COMPARISON: 06/23/2024 CLINICAL INDICATION: Male, 53 years old with history of N20.0 CALCULUS OF KIDNEY, TECHNIQUE: Single view of the abdomen. FINDINGS: Right renal calculi: Calculus mid to upper pole right kidney measures 7 mm. Mid to lower pole calculu s right kidney measures approximately 6.3 mm. Right ureteral calculi: None Visualized. Left renal calculi: Multiple left-sided renal calculi noted. Left upper pole group of calcifications measuring 1.6 cm. Additional lower pole calculi measuring 1.2 cm at the lower pole. There is an amanda cent 9 mm group of calcifications. Left ureteral calculi: None Visualized. Pelvic calcifications: Multiple pelvic calculi may reflect phlebolith formation. Bowel gas pattern is unremarkable. No free air. No mass effects. IMPRESSION: 1. As above [facility], , 07/07/2024 8:32 AM
[2024-07-07] MEDS: LACTATED RINGERS 1,000 ML IV SCH (08:41)
[2024-07-07] MEDS: DEXAMETHASONE SOD PHOSPHATE 4 MG/ML 1 ML VIAL IVP STA (08:46)
[2024-07-07] MEDS: ONDANSETRON 4 MG/2 ML VIAL IVP STA (08:47)
[2024-07-07] MEDS ORDERED: PROPOFOL 10 MG/ML 20 ML VIAL IV ONE (10:05)
[2024-07-07] MEDS ORDERED: fentaNYL (PF) 50 MCG/ML 2 ML AMP ONE (10:05)
[2024-07-07] MEDS ORDERED: LIDOCAINE 1% INJ 10MG/ML (20 ML MDV) ONE (10:05)
[2024-07-07] MEDS ORDERED: MIDAZOLAM 2 MG/2 ML VIAL ONE (10:05)
[2024-07-07] MEDS ORDERED: PHENYLEPHRINE-0.9% NACL SYG 1,000 MCG/10 ML SYRINGE ONE (10:05)
[2024-07-07] MEDS: ceFAZolin 2 GM in DEXTROSE 5% IN WATER 50 ML IVPB PRN (10:11)
[2024-07-07] MEDS: LACTATED RINGERS 1,000 ML IV ONE ×2 (10:35→13:00)
--- NOTE | 2024-07-07 11:45 | P.OP ---
Date of Procedure: 07/07/24 Preoperative Diagnosis: Left renal stone Postoperative Diagnosis: Same Procedure(s) Performed: Cystoscopy, left ureteroscopy with laser lithotripsy, stone basketing and placement of 6 x 26 stent Anesthesia: ALFRED Surgeon: Nash Miller Estimated Blood Loss (ml): 0 Pathology: none sent Condition: stable Disposition: PACU Indications for Procedure: Patient is 53. He has active kidney stone disease. He has several stones in the left kidney. I recommended percutaneous nephrostolithotomy but he declined. We discussed shockwave lithotripsy versus ureteroscopy we will attempt ureteroscopy on the left side Description of Procedure: The operating suite. Given a general anesthetic. Placed in lithotomy position with sterile prep and drape. Cystoscopy Foroblique lens and 21 [place] sheath identifies a normal anterior urethra. The prostate is nonobstructing. The bladder wall is unremarkable. The left ureteral orifice is identified and intubated with an 035 wire passed up into the left kidney. I remove the cystoscope and over the wires passed an 1113 [place] reentry sheath. The inner sheath is removed. I passed a flexible ureteroscope up into the kidney and go through each calyx. Stone is identify primarily in the upper pole calyx in the lower pole calyx. With a 200 m laser probe I did break the stones in extremely tiny fragments. A lot of the dust settles in the lower pole calyx which I attempted basket but the fragments are too small to basket. At the end of the procedure pullout ureteroscopy was performed and there is no remaining stone. The wire remains in the kidney. I backloaded the wire onto the regular cystoscope and introduced a 6 x 26 stent that coils in the left kidney and in the bladder. The bladder is drained the patient is awakened and returned to recovery in good condition. He Toller procedure well. To be discharged home upon recovery and follow in the office in 48 hours for stent removal.
--- NOTE | 2024-07-07 12:17 | FL ---
Fluoroscopy History: Cysto for left kidney stone Cysto for left kidney stone and stent insertion 16sec fluoro time 274.51 DAP [facility], , 07/07/2024 12:14 PM
[2024-07-07] MEDS: HYDROmorphone 0.5 MG/0.5 ML SYRINGE IVP STA (12:28)
[2024-07-07] MEDS: KETOROLAC 15 MG/ML 1 ML VIAL IVP STA (12:28)
[2024-07-07 14:03] VITALS: BP 151/87; PULSE 71; RESP 16
== END 2024-07-07 14:04 | disposition home or self-care (01) ==
LOC: OR 07:59
PROVIDERS: ATTEND Urology
DX: N20.0 Calculus of kidney (principal); Z79.899 Other long term (current) drug therapy; Z87.442 Personal history of urinary calculi
CPT/HCPCS: 52356; 74018; C2625; C1769; J2250; J1100; J0690; J2405; J2003; J3010; J1885; J2704; J1171; J2371

== ENCOUNTER 2024-07-09 18:23 | Observation (INO) | payer BC ==
--- NOTE | 2024-07-09 18:42 | ED ---
Abdominal Pain HPI - General Source: patient, RN notes reviewed Mode of arrival: ambulatory Limitations: no limitations <Tahira Ruelas - Last Filed: 07/09/24 18:40> - General Source: patient, RN notes reviewed, old records reviewed <Tee Lagunas - Last Filed: 07/09/24 21:34> - General Chief Complaint: Abdominal Pain Stated Complaint: abd pain Time Seen by Provider: 07/09/24 18:40 - History of Present Illness Initial Comments: Quick [id number] male presenting for left flank pain status post lithotripsy [address] Miller. [address] Dr. Miller removed stent this morning, however pain has been increasingly worsening since the stent has been removed. Patient reports he there is sediments in his urine. (Tahira Ruelas) 53-year-old male who presents emergency department for left flank pain. Patient recently had lithotripsy and ureteral stent removal by Dr. Miller 2 days ago. Presents over worsening left-sided flank pain. Endorses fragments of the stones in the urine. Endorses some nausea with some emesis. Denies any fevers or chills. Denies any diarrhea endorses hematuria. (Tee Lagunas) - Related Data Home Medications Medication Instructions Recorded Confirmed Loratadine [Claritin] 10 mg PO DAILY 07/06/24 07/07/24 Previous Rx's Medication Instructions Recorded HYDROcodone/APAP 5-325MG [[place] 1 tab PO Q4HR PRN #10 tab 07/07/24 5-325] Allergies Allergy/AdvReac Type Severity Reaction Status Date / Time No Known Allergies Allergy Verified 07/07/24 08:24 Review of Systems ROS Other: All systems not noted in ROS Statement are negative. <Tahira Ruelas - Last Filed: 07/09/24 18:40> ROS Other: All systems not noted in ROS Statement are negative. <Tee Lagunas - Last Filed: 07/09/24 21:34> ROS Statement: Those systems with pertinent positive or pertinent negative responses have been documented in the HPI. Review of Systems: CONST: Denies fever EYES: Denies blurry vision ENT: Denies nasal congestion C/V: Denies Chest pain RESP: Denies shortness of breath GI: Endorses left flank pain : Denies dysuria SKIN: Denies rash. MSK: Denies joint pain. NEURO: Denies headache (Tee Lagunas) Past Medical History Additional Past Medical History / Comment(s): Kidney stones History of Any Multi-Drug Resistant Organisms: None Reported Past Surgical History: Hernia Repair Additional Past Surgical History / Comment(s): Lithrotripsies Past Anesthesia/Blood Transfusion Reactions: No Reported Reaction Past Psychological History: No Psychological Hx Reported Smoking Status: Never smoker Past Alcohol Use History: None Reported Past Drug Use History: None Reported - Past Family History Mother Family Medical History: No Reported History <Tahira Ruelas - Last Filed: 07/09/24 18:40> General Exam Limitations: no limitations <Tahira Ruelas - Last Filed: 07/09/24 18:40> <Tee Lagunas - Last Filed: 07/09/24 21:34> - General Exam Comments Initial Comments: Visual Physical Exam Vital signs reviewed General: Well-appearing, nontoxic, no acute distress. Head: Normocephalic, atraumatic Eyes: PERRLA, EOMI ENT: Airway patent Chest: Nonlabored breathing Skin: No visual rash, normal skin tone Neuro: Alert and oriented 3 Musculoskeletal: No gross abnormalities (Tahira Ruelas) General: Appears in significant distress secondary to left flank pain. HEAD: Normal with no signs of head trauma. EYES: EOMI ENT: Hearing grossly intact, normal oropharynx. RESPIRATORY: Clear breath sounds bilaterally. No wheezes, rales, or rhonchi. C/V: Regular rate and rhythm. S1 and S2 auscultated, no edema, peripheral pulses 2+ and intact throughout ABD: Abdomen soft, nondistended. Tender to palpation in the left flank and left CVA. No guarding or rebound tenderness. No peritoneal signs. EXT: No obvious deformity SKIN: No rashes or lesions observed on exposed skin. NEURO: Alert and oriented x 4. (Tee Lagunas) Course Vital Signs 07/09/24 07/09/24 07/09/24 18:28 19:14 20:52 Temperature 97.5 F L 98.1 F Pulse Rate 82 87 96 Respiratory 18 19 19 Rate Blood Pressure 151/69 131/82 128/81 O2 Sat by Pulse 92 L 96 94 L Oximetry Medical Decision Making <Tahira Ruelas - Last Filed: 07/09/24 18:40> - Lab Data Result diagrams: 07/09/24 20:03 07/09/24 20:03 <BeboTee - Last Filed: 07/09/24 21:34> - Medical Decision Making I completed the quick note portion of this chart signed Tahira Ruelas PA-C (Tahira Ruelas) Was pt. sent in by a medical professional or institution (GREGORY Cade, EXPEDITION SUPERVISOR, urgent care, hospital, or fpc...) When possible be specific @ -No Did you speak to anyone other than the patient for history (EMS, parent, family, police, friend...)? What history was obtained from this source @ -No Did you review nursing and triage notes (agree or disagree)? Why? @ -I reviewed and agree with nursing and triage notes Were old charts reviewed (outside hosp., previous admission, EMS record, old EKG, old radiological studies, urgent care reports/EKG's, fpc records)? Report findings @ -No old charts were reviewed Differential Diagnosis (chest pain, altered mental status, abdominal pain women, abdominal pain men, vaginal bleeding, weakness, fever, dyspnea, syncope, headache, dizziness, GI bleed, back pain, seizure, CVA, palpatations, mental health, musculoskeletal)? @ -Kidney stones, RUBÉN, ureterolithiasis, UTI. This list is not all inclusive. EKG interpreted by me (3pts min.). @ -None done X-rays interpreted by me (1pt min.). @ -None done CT interpreted by me (1pt min.). @ -CT reveals multiple fragments of kidney stones traveling down the left ureter with mild hydronephrosis. The largest stone is 8 mm in size In the distal ureter. U/S interpreted by me (1pt. min.). @ -None done What testing was considered but not performed or refused? (CT, X-rays, U/S, labs)? Why? @ -None What meds were considered but not given or refused? Why? @ -None Did you discuss the management of the patient with other professionals (professionals i.e. GREGORY Cade, EXPEDITION SUPERVISOR, lab, RT, psych nurse, social work program coordinator, field software engineer, teacher, correction officer penitentiary, oil field caser)? Give summary @ -Discussed with patient's urologist, Dr. Miller who accepted the admission and was in agreement with the plan. Patient can eat. Was smoking cessation discussed for >3mins.? @ -No Was critical care preformed (if so, how long)? @ -No Were there social determinants of health that impacted care today? How? (Homelessness, low income, unemployed, alcoholism, drug addiction, transportation, low edu. Level, literacy, decrease access to med. care, halfway, rehab)? @ -No Was there de-escalation of care discussed even if they declined (Discuss DNR or withdrawal of care, Hospice)? DNR status @ -No What co-morbidities impacted this encounter? (DM, HTN, Smoking, COPD, CAD, Cancer, CVA, ARF, Chemo, Hep., AIDS, mental health diagnosis, sleep apnea, morbid obesity)? @ -Kidney stones, recent lithotripsy and ureteral stent Was patient admitted / discharged? Hospital course, mention meds given and route, prescriptions, significant lab abnormalities, going to OR and other pertinent info. @ -Patient presents with left flank pain in the setting of recent lithotripsy and ureteral stent on the left. Patient originally seen as a quick note. Vitals are within acceptable limits. He will be given IV analgesia medications as well as Zofran and fluids. Will obtain abdominal labs as well as CT without contrast. He was in agreement this plan. Labs remarkable for mild hypokalemia 3.4 which was replenished. Patient has mild lactic acidosis of 2.5 likely related to the nausea and vomiting. IV fluid should treat this. Urinalysis remarkable for significant amount of hematuria with some white cells with no evidence of infection. CT imaging revealed multiple passing calculi in the left ureter with mild hydronephrosis. Patient is required multiple doses of IV Dilaudid here in the department. I discussed the case with his urologist, Dr. Miller who accepted admission for pain control. Patient can eat. No plan for procedures. Patient was in agreement this plan. Undiagnosed new problem with uncertain prognosis? @ -No Drug Therapy requiring intensive monitoring for toxicity (Heparin, Nitro, Insulin, Cardizem)? @ -No Were any procedures done? @ -No Diagnosis/symptom? @ -Intractable pain, ureterolithiasis Acute, or Chronic, or Acute on Chronic? @ -Acute Uncomplicated (without systemic symptoms) or Complicated (systemic symptoms)? @ -Complicated Side effects of treatment? @ -No Exacerbation, Progression, or Severe Exacerbation? @ -No Poses a threat to life or bodily function? How? (Chest pain, [place], [place], pneumonia, PE, COPD, DKA, ARF, appy, cholecystitis, CVA, Diverticulitis, Homicidal, Suicidal, threat to staff... and all critical care pts) @ -Potentially yes (Tee Lagunas) - Lab Data Lab Results 07/09/24 07/09/24 07/09/24 Range/Units 19:17 20:03 20:03 WBC 9.99 (4.50-10.00) 10*3/uL RBC 4.74 (4.40-5.60) 10*6/uL Hgb 15.1 (13.0-17.0) g/dL Hct 42.9 (39.6-50.0) % MCV 90.5 (80.0-97.0) fL MCH 31.9 (27.0-32.0) pg MCHC 35.2 (32.0-37.0) g/dL Plt Count 173 (140-440) 10*3/uL MPV 11.5 (9.5-12.2) fL Immature Gran % (Auto) 0.4 % Neutrophils % 81.5 % Lymphocytes % 11.5 % Monocytes % 5.5 % Eosinophils % 0.6 % Basophils % 0.5 % Immature Gran # 0.04 (0.00-0.04) 10*3/uL Neutrophils # 8.14 H (1.80-7.70) 10*3/uL Lymphocytes # 1.15 (0.90-5.00) 10*3/uL Monocytes # 0.55 (0.20-1.00) 10*3/uL Eosinophils # 0.06 (0.04-0.35) 10*3/uL Basophils # 0.05 (0.00-0.10) 10*3/uL Sodium 137 (137-145) mmol/L Potassium 3.4 L (3.5-5.1) mmol/L Chloride 104 (98-107) mmol/L Carbon Dioxide 24 (22-30) mmol/L Anion Gap 9 mmol/L BUN 16 (9-20) mg/dL Creatinine 1.18 (0.66-1.25) mg/dL Est GFR (CKD-EPI)AfAm 82 (>60 ml/min/1.73 sqM) Est GFR (CKD-EPI)NonAf 71 (>60 ml/min/1.73 sqM) Glucose 154 H (74-99) mg/dL Plasma Lactic Acid Gadiel (0.7-2.0) mmol/L Calcium 11.0 H (8.4-10.2) mg/dL Total Bilirubin 1.9 H (0.2-1.3) mg/dL AST 38 (17-59) U/L ALT 58 H (4-49) U/L Alkaline Phosphatase 57 (38-126) U/L Total Protein 6.7 (6.3-8.2) g/dL Albumin 4.3 (3.5-5.0) g/dL Urine Color Yellow Urine Appearance Cloudy (Clear) Urine pH 5.5 (5.0-8.0) Ur Specific [place] 1.025 (1.001-1.035) Urine Protein 1+ H (Negative) Urine Glucose (UA) Negative (Negative) Urine Ketones 1+ H (Negative) Urine Blood Large H (Negative) Urine Nitrite Negative (Negative) Urine Bilirubin Negative (Negative) Urine Urobilinogen <2.0 (<2.0) mg/dL Ur Leukocyte Esterase Moderate H (Negative) Urine RBC >182 H (0-5) /hpf Urine WBC 86 H (0-5) /hpf Ur Squamous Epith Cells <1 (0-4) /hpf Urine Mucus Few H (None) /hpf // Range/Units 20:03 WBC (4.50-10.00) 10*3/uL RBC (4.40-5.60) 10*6/uL Hgb (13.0-17.0) g/dL Hct (39.6-50.0) % MCV (80.0-97.0) fL MCH (27.0-32.0) pg MCHC (32.0-37.0) g/dL Plt Count (140-440) 10*3/uL MPV (9.5-12.2) fL Immature Gran % (Auto) % Neutrophils % % Lymphocytes % % Monocytes % % Eosinophils % % Basophils % % Immature Gran # (0.00-0.04) 10*3/uL Neutrophils # (1.80-7.70) 10*3/uL Lymphocytes # (0.90-5.00) 10*3/uL Monocytes # (0.20-1.00) 10*3/uL Eosinophils # (0.04-0.35) 10*3/uL Basophils # (0.00-0.10) 10*3/uL Sodium (137-145) mmol/L Potassium (3.5-5.1) mmol/L Chloride (98-107) mmol/L Carbon Dioxide (22-30) mmol/L Anion Gap mmol/L BUN (9-20) mg/dL Creatinine (0.66-1.25) mg/dL Est GFR (CKD-EPI)AfAm (>60 ml/min/1.73 sqM) Est GFR (CKD-EPI)NonAf (>60 ml/min/1.73 sqM) Glucose (74-99) mg/dL Plasma Lactic Acid Gadiel 2.5 H* (0.7-2.0) mmol/L Calcium (8.4-10.2) mg/dL Total Bilirubin (0.2-1.3) mg/dL AST (17-59) U/L ALT (4-49) U/L Alkaline Phosphatase (38-126) U/L Total Protein (6.3-8.2) g/dL Albumin (3.5-5.0) g/dL Urine Color Urine Appearance (Clear) Urine pH (5.0-8.0) Ur Specific [place] (1.001-1.035) Urine Protein (Negative) Urine Glucose (UA) (Negative) Urine Ketones (Negative) Urine Blood (Negative) Urine Nitrite (Negative) Urine Bilirubin (Negative) Urine Urobilinogen (<2.0) mg/dL Ur Leukocyte Esterase (Negative) Urine RBC (0-5) /hpf Urine WBC (0-5) /hpf Ur Squamous Epith Cells (0-4) /hpf Urine Mucus (None) /hpf Disposition <Tahira Ruelas - Last Filed: 07/09/24 18:40> Time of Disposition: 21:33 <Tee Lagunas - Last Filed: 07/09/24 21:34> Clinical Impression: Ureterolithiasis, Flank pain Disposition: ADMITTED IP TO THIS [facility] Condition: Stable Referrals: Jeff Koo MD [Primary Care Provider] - 1-2 days
[2024-07-09] MEDS: HYDROmorphone 1 MG/ML 1 ML SYRINGE IM STA (19:12)
[2024-07-09 19:30] LABS: Appearance,Urine Cloudy (Clear); Bilirubin,Urine Negative (Negative); Blood,Urine Large (Negative); Color,Urine Yellow; Glucose,Urine (UA) Negative (Negative); Ketones,Urine 1+ (Negative); Leukocyte Esterase,Urine Moderate (Negative); Mucus,Urine Few /hpf; Nitrite,Urine Negative (Negative); PH, Urine 5.5 (5.0-8.0); Protein,Urine 1+ (Negative); RBC,Urine >182 /hpf (0-5); Specific Gravity,Urine 1.025 (1.001-1.035); Squamous Epithelial Cell,Urine <1 /hpf (0-4); Urobilinogen,Urine <2.0 mg/dL (<2.0); WBC,Urine 86 /hpf (0-5)
[2024-07-09 20:08] LABS: Basophils # (A) 0.05 10*3/uL (0.00-0.10); Basophils % (A) 0.5 %; Eosinophils # (A) 0.06 10*3/uL (0.04-0.35); Eosinophils % (A) 0.6 %; HCT 42.9 % (39.6-50.0); HGB 15.1 g/dL (13.0-17.0); Lymphocytes # (A) 1.15 10*3/uL (0.90-5.00); Lymphocytes % (A) 11.5 %; MCH 31.9 pg (27.0-32.0); MCHC 35.2 g/dL (32.0-37.0); MCV 90.5 fL (80.0-97.0); Mean Platelet Volume 11.5 fL (9.5-12.2); Monocytes # (A) 0.55 10*3/uL (0.20-1.00); Monocytes % (A) 5.5 %; Neutrophils # (A) 8.14 10*3/uL (1.80-7.70); Neutrophils % (A) 81.5 %; Platelet Count 173 10*3/uL (140-440); RBC 4.74 10*6/uL (4.40-5.60); RDW 12.1 % (11.5-14.5); WBC 9.99 10*3/uL (4.50-10.00)
[2024-07-09] MEDS: KETOROLAC 15 MG/ML 1 ML VIAL IVP STA (20:17)
[2024-07-09] MEDS: SODIUM CHLORIDE 0.9% 1,000 ML IV ONE (20:17)
[2024-07-09] MEDS: ONDANSETRON 4 MG/2 ML VIAL IVP STA (20:18)
[2024-07-09 20:32] LABS: ALT 58 U/L (4-49); AST 38 U/L (17-59); African American GFR (CKD) 82 (>60 ml/min/1.73 sqM); Albumin 4.3 g/dL (3.5-5.0); Alkaline Phosphatase 57 U/L (38-126); Anion Gap 9 mmol/L; Blood Urea Nitrogen 16 mg/dL (9-20); Carbon Dioxide 24 mmol/L (22-30); Chloride 104 mmol/L (98-107); Glucose 154 mg/dL (74-99); Non-African American GFR(CKD) 71 (>60 ml/min/1.73 sqM); Potassium 3.4 mmol/L (3.5-5.1); Sodium 137 mmol/L (137-145); Total Bilirubin 1.9 mg/dL (0.2-1.3); Total Protein 6.7 g/dL (6.3-8.2)
[2024-07-09] MEDS: HYDROmorphone 0.5 MG/0.5 ML SYRINGE IVP STA (20:56)
--- NOTE | 2024-07-09 21:12 | CT ---
EXAMINATION TYPE: CT abdomen pelvis wo con DATE OF EXAM: 07/09/2024 8:33 PM COMPARISON: 06/14/2022 CLINICAL INDICATION: Male, 53 years old with history of left flank pain s/p lithotripsy; left flank p ain post lithotripsy and stent removal TECHNIQUE: Axial CT abdomen pelvis wo con;Sagittal and coronal reformats were created on a separate workstation. Contrast used: mL of , (none if empty) Oral contrast used: without Oral Contrast (none if empty) CT DLP: 932 mGycm, Automated exposure control for dose reduction was used. FINDINGS: LOWER CHEST: Unremarkable ABDOMEN LIVER: Unremarkable GALLBLADDER AND BILE DUCTS: Unremarkable. PANCREAS: Unremarkable. SPLEEN: Unremarkable. ADRENAL GLANDS: Unremarkable. KIDNEYS AND URETERS: Multiple right renal calculi measuring up to 9 mm. No right obstructive uropathy. Left ureterovesicular junction calculi measuring up to 8 x 4 mm with mild hydronephrosis. Additional distal left ureter calculus measuring up to 5 mm. Multiple left proximal ureter calculi measuring up to 7 mm near the ureteropelvic brim. Fat stranding changes are seen on the left ureter and left kidne y likely due to acute obstructive uropathy with recent procedure. PELVIS BLADDER: No evidence for wall thickening or mass given limitations of exam. REPRODUCTIVE: Unremarkable. ABDOMEN & PELVIS STOMACH AND BOWEL: No evidence of bowel obstruction. PERITONEUM/RETROPERITONEUM: No evidence of pneumoperitoneum or free fluid. VASCULATURE: No evidence of aortic aneurysm. MUSCULOSKELETAL: No acute osseous abnormalities. Mild disc degeneration changes are present throughou t the thoracolumbar spine. LYMPH NODES: No gross evidence for lymphadenopathy. SOFT TISSUE/ABDOMINAL WALL: Unremarkable IMPRESSION: Mild left hydronephrosis with multiple obstructing calculi in the left ureter the largest at the uret erovesicular junction, and at least one other calculus just proximal/superior to that. Group of multi ple foci at the pelvic brim also present. Additional nonobstructing calculi bilaterally. Urologic con sultation recommended. [facility], , 07/09/2024 9:09 PM
[2024-07-09] MEDS ORDERED: NALOXONE 0.4 MG/ML 1 ML VIAL IV PRN (21:20)
[2024-07-09] MEDS ORDERED: ONDANSETRON 4 MG/2 ML VIAL IVP PRN (21:26)
[2024-07-09] MEDS ORDERED: IBUPROFEN 400 MG TAB PO PRN (21:26)
[2024-07-09] MEDS ORDERED: HYDROcodone/APAP 5-325MG 1 EACH TAB PO PRN (21:26)
[2024-07-09] MEDS: POTASSIUM CHLORIDE ER 20 MEQ TAB.ER PO STA (21:56)
[2024-07-09] MEDS: SODIUM CHLORIDE 0.9% 1,000 ML IV SCH (21:58)
[2024-07-10 06:57] LABS: Basophils # (A) 0.05 10*3/uL (0.00-0.10); Basophils % (A) 0.8 %; HCT 40.2 % (39.6-50.0); Lymphocytes # (A) 2.17 10*3/uL (0.90-5.00); Lymphocytes % (A) 32.8 %; MCHC 34.8 g/dL (32.0-37.0); MCV 91.8 fL (80.0-97.0); Mean Platelet Volume 11.4 fL (9.5-12.2); Monocytes # (A) 0.58 10*3/uL (0.20-1.00); Monocytes % (A) 8.8 %; Neutrophils # (A) 3.59 10*3/uL (1.80-7.70); Neutrophils % (A) 54.1 %; Platelet Count 196 10*3/uL (140-440); RBC 4.38 10*6/uL (4.40-5.60); RDW 12.5 % (11.5-14.5); WBC 6.62 10*3/uL (4.50-10.00)
[2024-07-10 07:22] LABS: ALT 55 U/L (4-49); AST 36 U/L (17-59); African American GFR (CKD) >90 (>60 ml/min/1.73 sqM); Albumin 3.9 g/dL (3.5-5.0); Alkaline Phosphatase 49 U/L (38-126); Anion Gap 5 mmol/L; Blood Urea Nitrogen 15 mg/dL (9-20); Calcium 10.8 mg/dL (8.4-10.2); Carbon Dioxide 26 mmol/L (22-30); Chloride 105 mmol/L (98-107); Glucose 106 mg/dL (74-99); Non-African American GFR(CKD) 82 (>60 ml/min/1.73 sqM); Sodium 136 mmol/L (137-145); Total Bilirubin 2.1 mg/dL (0.2-1.3); Total Protein 6.1 g/dL (6.3-8.2)
--- NOTE | 2024-07-10 08:20 | P.GSHP ---
History of Present Illness H&P Date: 07/10/24 53 yo male known to me for kidney stones. HE had a left ureteroscopy with laser lithotripsy to multiple left renal stones. HE had declined pcnl. He had a stent for 48 hours that was removed friday am. He developed left flank pain and came to the er. He was found to have a an obstructing 4x8 mm mid ureteral stone. The majority of the stone form the left kidney is gone however because of the left ureteral colic he was admitted for pain control and further evaluation He is comfortable at present. I reviewed the CT scan there appears to be stone fragments in the ureter. The patient is feeling better since last night. He has passed multiple fragments but is still has some discomfort mi ldly. - Constitutional Constitutional: Denies chills, Denies fever - EENT Eyes: denies blurred vision, denies pain Ears, nose, mouth and throat: Denies headache, Denies sore throat - Cardiovascular Cardiovascular: Denies chest pain, Denies shortness of breath - Respiratory Respiratory: Denies cough, Denies 7 - Gastrointestinal Gastrointestinal: Denies abdominal pain, Denies diarrhea, Denies nausea, Denies vomiting - Genitourinary (Female) Genitourinary: Denies dysuria, Denies hematuria - Genitourinary (Male) Genitourinary: Denies dysuria, Denies hematuria - Musculoskeletal Musculoskeletal: Denies myalgias - Integumentary Integumentary: Denies pruritus, Denies rash - Neurological Neurological: Denies numbness, Denies weakness - Psychiatric Psychiatric: Denies anxiety, Denies depression - Endocrine Endocrine: Denies fatigue, Denies weight change Past Medical History Additional Past Medical History / Comment(s): Kidney stones History of Any Multi-Drug Resistant Organisms: None Reported Past Surgical History: Hernia Repair Additional Past Surgical History / Comment(s): Lithrotripsies Past Anesthesia/Blood Transfusion Reactions: No Reported Reaction Past Psychological History: No Psychological Hx Reported Smoking Status: Never smoker Past Alcohol Use History: None Reported Past Drug Use History: None Reported - Past Family History Mother Family Medical History: No Reported History Medications and Allergies Home Medications Medication Instructions Recorded Confirmed Type Loratadine [Claritin] 10 mg PO DAILY 07/06/24 07/07/24 History HYDROcodone/APAP 5-325MG [[place] 1 tab PO Q4HR PRN #10 tab 04/30/25 Rx 5325] Allergies Allergy/AdvReac Type Severity Reaction Status Date / Time No Known Allergies Allergy Verified 07/07/24 08:24 Surgical - Exam Vital Signs Temp Pulse Resp BP Pulse Ox 97.5 F L 82 18 151/69 92 L 07/09/24 18:28 07/09/24 18:28 07/09/24 18:28 07/09/24 18:28 07/09/24 18:28 - General well developed, well nourished, no distress - Eyes normal ocular movement, no icteric - ENT no hearing loss, no congestion - Neck no masses, trachea midline - Respiratory normal respiratory effort, clear to auscultation - Abdomen Abdomen: soft, non tender, no guarding, no rigid, no rebound - Integumentary no rash, no abnormal pigmentation - Neurologic no disoriented, no combative - Psychiatric oriented to time, oriented to person, oriented to place, speech is normal, memory intact Results - Labs 07/10/24 06:29 07/10/24 06:29 Abnormal Lab Results - Last 24 Hours (Table) 07/09/24 07/09/24 07/09/24 Range/Units 19:17 20:03 20:03 Neutrophils # 8.14 H (1.80-7.70) 10*3/uL Potassium 3.4 L (3.5-5.1) mmol/L Glucose 154 H (74-99) mg/dL Plasma Lactic Acid Gadiel (0.7-2.0) mmol/L Calcium 11.0 H (8.4-10.2) mg/dL Total Bilirubin 1.9 H (0.2-1.3) mg/dL ALT 58 H (4-49) U/L Urine Protein 1+ H (Negative) Urine Ketones 1+ H (Negative) Urine Blood Large H (Negative) Ur Leukocyte Esterase Moderate H (Negative) Urine RBC >182 H (0-5) /hpf Urine WBC 86 H (0-5) /hpf Urine Mucus Few H (None) /hpf 07/09/24 Range/Units 20:03 Neutrophils # (1.80-7.70) 10*3/uL Potassium (3.5-5.1) mmol/L Glucose (74-99) mg/dL Plasma Lactic Acid Gadiel 2.5 H* (0.7-2.0) mmol/L Calcium (8.4-10.2) mg/dL Total Bilirubin (0.2-1.3) mg/dL ALT (4-49) U/L Urine Protein (Negative) Urine Ketones (Negative) Urine Blood (Negative) Ur Leukocyte Esterase (Negative) Urine RBC (0-5) /hpf Urine WBC (0-5) /hpf Urine Mucus (None) /hpf Diabetes panel 07/09/24 Range/Units 20:03 Sodium 137 (137-145) mmol/L Potassium 3.4 L (3.5-5.1) mmol/L Chloride 104 (98-107) mmol/L Carbon Dioxide 24 (22-30) mmol/L BUN 16 (9-20) mg/dL Creatinine 1.18 (0.66-1.25) mg/dL Glucose 154 H (74-99) mg/dL Calcium 11.0 H (8.4-10.2) mg/dL AST 38 (17-59) U/L ALT 58 H (4-49) U/L Alkaline Phosphatase 57 (38-126) U/L Total Protein 6.7 (6.3-8.2) g/dL Albumin 4.3 (3.5-5.0) g/dL Calcium panel 07/09/24 Range/Units 20:03 Calcium 11.0 H (8.4-10.2) mg/dL Albumin 4.3 (3.5-5.0) g/dL Pituitary panel 07/09/24 Range/Units 20:03 Sodium 137 (137-145) mmol/L Potassium 3.4 L (3.5-5.1) mmol/L Chloride 104 (98-107) mmol/L Carbon Dioxide 24 (22-30) mmol/L BUN 16 (9-20) mg/dL Creatinine 1.18 (0.66-1.25) mg/dL Glucose 154 H (74-99) mg/dL Calcium 11.0 H (8.4-10.2) mg/dL Adrenal panel 07/09/24 Range/Units 20:03 Sodium 137 (137-145) mmol/L Potassium 3.4 L (3.5-5.1) mmol/L Chloride 104 (98-107) mmol/L Carbon Dioxide 24 (22-30) mmol/L BUN 16 (9-20) mg/dL Creatinine 1.18 (0.66-1.25) mg/dL Glucose 154 H (74-99) mg/dL Calcium 11.0 H (8.4-10.2) mg/dL Total Bilirubin 1.9 H (0.2-1.3) mg/dL AST 38 (17-59) U/L ALT 58 H (4-49) U/L Alkaline Phosphatase 57 (38-126) U/L Total Protein 6.7 (6.3-8.2) g/dL Albumin 4.3 (3.5-5.0) g/dL - Imaging CT scan - abdomen: report reviewed, image reviewed CT scan - pelvis: report reviewed, image reviewed Assessment and Plan Assessment: Impression: left ureteral stones with colic post laser lithotripsy left. Recommendations: We will observe the patient another 24 hours with IV fluids and parenteral narcotics to see if we can clean the ureter. Hopefully he will not require any intraoperative manipulation.
[2024-07-10] MEDS: TAMSULOSIN 0.4 MG CAP.ER.24H PO SCH (21:18)
[2024-07-10] MEDS: HYDROmorphone 1 MG/ML 1 ML SYRINGE IVP PRN (22:43)
--- NOTE | 2024-07-11 11:00 | P.PN ---
Subjective Progress Note Date: 07/11/24 The patient is in the hospital for left ureteral colic from stone fragments post ureteroscopy and laser lithotripsy last week. He is feeling a little better. Objective - Vital Signs Vital signs: Vital Signs Temp 98.3 F 07/11/24 07:23 Pulse 75 07/11/24 07:23 Resp 19 07/11/24 07:23 BP 143/83 07/11/24 07:23 Pulse Ox 96 07/11/24 07:23 FiO2 Intake & Output 07/10/24 07/11/24 07/11/24 18:59 06:59 18:59 Intake Total 1100 825 Balance 1100 825 Intake: Intake, IV Titration 900 825 Amount Sodium Chloride 0.9% 1, 900 825 000 ml @ 75 mls/hr IV . [id number] [facility] Rx#:[id number] Oral 200 Other: Voiding Method Toilet Toilet # Voids 3 - Labs CBC & Chem 7: 07/10/24 06:29 07/10/24 06:29 Labs: Microbiology - Last 24 Hours (Table) 07/09/24 19:17 Urine Culture - Final Urine,Voided Assessment and Plan Assessment: Impression: Left ureteral calculi causing colic. Recommendations: I will obtain a KUB to see the location of the stone to decide whether he wants to continue to try to spontaneously pass them or where they will consider a ureteroscopic manipulation
--- NOTE | 2024-07-11 11:29 | XR ---
EXAMINATION TYPE: XR KUB DATE OF EXAM: 07/11/2024 11:19 AM CLINICAL INDICATION: Male, 53 years old with history of left ureteral stones, pain TECHNIQUE: 2 supine views of the abdomen. COMPARISON: CT a/p from 07/09/2024. FINDINGS: Some paucity of small bowel gas. Gas and fecal material in nondistended colon along the per iphery. Bilateral nephrolithiasis redemonstrated. Small calculus at left UPJ on CT is less well seen on plain films. Multiple small calculi in the proximal left ureter less well seen, there is a 6 to 7 mm calculus projecting at the L4-L5 disc space level redemonstrated. Small bilateral pelvic phlebolit hs are seen. Osseous structures are intact. IMPRESSION: As Above. [facility], , 07/11/2024 11:27 AM
[2024-07-11 12:40] VITALS: BP 152/90; PULSE 76; RESP 18; TEMP 98.2
--- NOTE | 2024-07-11 13:52 | P.DS ---
Providers Date of admission: 07/09/24 21:27 Attending physician: Nash Miller Primary care physician: Jeff Koo MD Hospital Course: The patient was admitted with ureteral calculi,left 48 hours after a left ureteroscopy and laser lithotripsy to left renal stones. He had alot of colic due to stones in the ureter. HE is doing much better Per a kub today the stones have moved distally. He will go home to see if he can pass the fragments. He has pain meds at [facility] His condition is good. He will contact me in the office tomorrow to let me know how he is feeling and to make appropriate follow up Patient Condition at Discharge: Good Plan - Discharge Summary Discharge Rx Participant: Yes New Discharge Prescriptions: No Action HYDROcodone/APAP 5-325MG [[place] 5-325] 1 - 2 tab PO Q4HR PRN PRN Reason: Pain Discharge Medication List HYDROcodone/APAP 5-325MG [[place] 5-325] 1 - 2 tab PO Q4HR PRN 07/10/24 [History] Follow up Appointment(s)/Referral(s): Jeff Koo MD [Primary Care Provider] - 1-2 days Nash Miller MD [STAFF PHYSICIAN] - 1 Week (call office friday am to speak with me) Discharge Disposition: HOME SELF-CARE
== END 2024-07-11 16:07 | disposition home or self-care (01) ==
LOC: EC 18:23 → 6NMEDSUR 21:27 → 5NMEDONC 07-10 03:29
PROVIDERS: ADMIT Urology; ATTEND Urology
DX: N20.1 Calculus of ureter (principal); Z87.442 Personal history of urinary calculi; Z98.890 Other specified postprocedural states
CPT/HCPCS: 96376 ×2; 96361; 96372; 96374; 96375; 99285; 36415; 80053 ×2; 83605; 85025 ×2; 81001; 87086; 74018; 74176; G0378 ×4; J2405; J1171 ×4; J1885

== ENCOUNTER → 2024-07-28 | Outpatient (CLI) | payer BC ==
--- NOTE | 2024-07-28 14:14 | XR ---
EXAMINATION TYPE: XR KUB DATE OF EXAM: 07/28/2024 2:02 PM COMPARISON: 07/11/2024 CLINICAL INDICATION: Male, 53 years old with history of N20.0 CALCULUS KIDNEY; PHH, pain, follow-up l eft-sided lithotripsy performed 2 weeks ago TECHNIQUE: One radiographic view of the abdomen was obtained. FINDINGS: Possible previous mid left ureteral stone has cleared. Left-sided renal calculi measuring up to 1.6 c m and on the right measuring up to 1.0 cm remain unchanged. Stable bilateral pelvic phleboliths. Nono bstructive bowel gas pattern. IMPRESSION: Bilateral nephrolithiasis redemonstrated measuring up to 1.6 cm on the left. There may have been inte rval clearing of pain previous mid left ureteral stone. [facility], , 07/28/2024 2:12 PM
== END | disposition home or self-care (01) ==
LOC: RADXRMAIN 13:50
PROVIDERS: ATTEND Urology
DX: N20.0 Calculus of kidney (principal)
CPT/HCPCS: 74018